=== PATIENT | male | born 1980 | race Caucasian/White ===

== ENCOUNTER 2022-05-29 18:40 | Emergency (ER) | payer BC, SELFPAY ==
[2022-05-29 18:42] VITALS: BP 145/95; PULSE 78; RESP 18; TEMP 36.8; O2SAT 98; BMI 19.2
--- NOTE | 2022-05-29 19:10 | HMH.EDGENADL ---
Discharge Plan Disposition Patient Disposition: Home, Self-Care Condition: Good Referrals Follow up/Referrals: Provider,Referral, MD [Primary Care Provider] - See instructions Activity Restrictions/Add. Instructions Additional Instructions/Restrictions: Follow-up with eye doctor if eye irritation or pain persists, call Tuesday for appointment if needed. Dr. Oneil, Dr. Chong, Dr. Alfonzo [facility] [address] [place] [address] Clinical Impressions Clinical Impression: Foreign body of conjunctiva, right Instructions Patient Instructions: DI for Foreign Body in the Eye Discharge ED Provider: Luis Schwartz General Adult HPI General Stated complaint: AO 05/29@1630 FB in R Eye Time Seen by Provider: 05/29/22 18:55 History of Present Illness HPI narrative: Patient states that he got a metallic foreign body in his right thigh today. He was cutting a metal pipe. He can feel it when he moves his upper eyelid. He does not wear contacts or glasses. [facility] Disclaimer: The information contained in this section may have been updated after the patient was seen, as this information can be updated by other users. ROS Obtained: Yes Systems reviewed as appropriate & no additional complaints except as documented Eyes Eyes: Reports irritation and Reports other (Increased tearing right eye) Physical Exam General General appearance: alert and in no apparent distress Expanded Eye Exam Slit lamp exam: performed (Fluorescein staining performed with slit lamp magnification. No uptake or abrasions seen. No corneal foreign bodies.) Eyelids: bilateral: normal inspection Pupils: Bilateral: regular, round Sclera/Conjunctival: right: injection and foreign body (Metallic conjunctival foreign body on the inner aspect of his right upper eyelid, removed with Q-tip) Chest Chest inspection: Present normal inspection and symmetric chest wall rise Respiratory Respiratory exam: Absent respiratory distress Cardiovascular Cardiovascular exam: Present regular rate Neurological Exam Neurological exam: Present alert and oriented X3 Psychiatric Psychiatric exam: Present normal affect and normal mood Skin Skin exam: Present warm and dry Medical Decision Making [place] Inquiry Pt receiving controlled substance: No Procedures Miscellaneous Procedure Procedure Performed: Tetracaine instilled in the right eye. Foreign body inner aspect right upper eyelid conjunctiva removed with Q-tip. No other foreign bodies found. Lids everted. Fluorescein staining and slit and examination unremarkable. Critical Care Time Critical Care Time Critical Care Time: No Attestation: On 05/29/22, the high probability of a clinically significant, sudden or life threatening deterioration of the following system(s) required my full and direct attention, intervention and personal management. The time I documented below is in addition to time spent performing reported procedures but includes the following listed in this critical care notation.
[2022-05-29 19:54] VITALS: BP 145/57; PULSE 68; RESP 20; TEMP 36.6; O2SAT 98
== END 2022-05-29 19:56 | disposition home or self-care (01) ==
PROVIDERS: Emergency Provider Emergency Medicine
DX: T15.11XA Foreign body in conjunctival sac, right eye, initial encounter (principal)
CPT/HCPCS: 99282

== ENCOUNTER 2022-07-09 14:52 | Emergency (ER) | payer BC, SELFPAY ==
--- NOTE | 2022-07-09 15:04 | HMH.EDHA ---
Discharge Plan Disposition Chief Complaint: Headache Referrals Follow up/Referrals: Devonte Ruiz MD [Primary Care Provider] - See instructions Activity Restrictions/Add. Instructions Additional Instructions/Restrictions: Keep all follow-up appointments as scheduled. Return to the emergency department if you feel worse in any way. Clinical Impressions Clinical Impression: Migraine Instructions Patient Instructions: DI for Migraine, DI for Headache Discharge ED Provider: Halima Ortega Headache HPI General Chief Complaint: Headache Stated Complaint: Possible migrane, vomitting, night sweats Time Seen by Provider: 07/09/22 15:04 Mode of Arrival: Ambulatory Source of Information: Patient History of Present Illness HPI Narrative: The patient presents to the emergency department complaining of a migraine headache that began about 3 AM. He has had similar symptoms in the past. The symptoms are associated with nausea and dry heaving. He denies any abdominal pain or fevers. He has chronic back pain. He takes ibuprofen and Tylenol for these. MD Complaint: migraine Related Data Allergies Allergy/AdvReac Type Severity Reaction Status Date / Time methadone AdvReac Unknown overdose Verified 07/09/22 15:33 [facility] History Hepatitis A Screen Attestation statement:: This patient has been screened for Hepatitis A risk factors. Social History Smoking Status: Current every day smoker [facility] Disclaimer: The information contained in this section may have been updated after the patient was seen, as this information can be updated by other users. Social History (Updated 07/09/22 @ 15:34 by Ryan Peterson RN) Smoking Status: Current every day smoker alcohol intake: current current occupational status: employed Travel in the last 8 weeks: None ROS Obtained: Yes All systems reviewed & no additional complaints except as documented Physical Exam General General appearance: alert Head Head exam: atraumatic Eye Eye exam: Present normal appearance, PERRL and EOMI; Absent scleral icterus ENT ENT exam: Present normal exam Neck Neck exam: Present normal inspection and full ROM; Absent tenderness or meningismus Chest Chest inspection: Present normal inspection and symmetric chest wall rise; Absent tenderness Respiratory Respiratory exam: Present normal lung sounds bilaterally; Absent respiratory distress or accessory muscle use Cardiovascular Cardiovascular exam: Present regular rate, normal rhythm and normal heart sounds Abdominal Exam Abdominal exam: Present soft and normal bowel sounds; Absent distention, tenderness, heel tap sign, Lopez's sign, Rovsing's sign, tenderness at McBurney's Point or mass Extremities Exam Extremities exam: Present normal inspection and full ROM Back Exam Back exam: Present normal inspection; Absent CVA tenderness (R) or CVA tenderness (L) Neurological Exam Neurological exam: Present alert and oriented X3 Psychiatric Psychiatric exam: Present normal affect and normal mood Skin Skin exam: Present warm, dry, intact and normal color Medical Decision Making [place] Inquiry Pt receiving controlled substance: No Vital Signs: 07/09/22 15:27 07/09/22 15:30 07/09/22 15:44 Temperature 97.6 F Temperature Source Oral Pulse Rate 65 65 Pulse Rate [Left] 87 Respiratory Rate 16 16 16 Blood Pressure 100/45 L 105/64 L Blood Pressure [Right Arm] 106/61 L Blood Pressure Mean 63 76 Blood Pressure Mean [Right Arm] 76 02 Sat by Pulse Oximetry 99 100 100 Lab Data Lab Results 07/09/22 15:08: POC Glucose 113 H Orders (Tests/Meds): ED MEDICATIONS Generic Name Dose Route Start Last Admin Trade Name Freq PRN Reason Stop Dose Admin Sodium Chloride 1,000 mls @ 999 mls/hr 07/09/22 15:15 07/09/22 15:08 Sod Chlor 0.9% 1000ml Bag IV 07/09/22 16:15 999 mls/hr .Q1H1M MICHELLE Administration Discontinued Medications Generic Name Dose Route Start La
[2022-07-09 15:24] LABS: POC Glucose,Bedside 113 (70-110)
--- NOTE | 2022-07-09 15:25 | PC.NURSE ---
got pt an ice pac
[2022-07-09 15:27] VITALS: BP 106/61; PULSE 87; RESP 16; TEMP 36.4; O2SAT 99; BMI 20.9
[2022-07-09 15:30] VITALS: BP 100/45; PULSE 65; RESP 16; O2SAT 100
[2022-07-09 15:44] VITALS: BP 105/64; PULSE 65; RESP 16; O2SAT 100
[2022-07-09 15:59] VITALS: BP 109/65; PULSE 73; RESP 16; TEMP 36.8; O2SAT 97
--- NOTE | 2022-07-09 16:10 | PC.NURSE ---
WENT IN TO D/C PT HIS IV HAD INFILTRATED ARM SWOLLEN WITH NO PAIN . ICE PACK SENT WITH PT
== END 2022-07-09 16:13 | disposition home or self-care (01) ==
PROVIDERS: Emergency Provider Emergency Medicine; PCP Family Medicine
DX: G43.909 Migraine, unspecified, not intractable, without status migrainosus (principal); R11.10 Vomiting, unspecified; M54.9 Dorsalgia, unspecified; G89.29 Other chronic pain; F17.210 Nicotine dependence, cigarettes, uncomplicated
CPT/HCPCS: 82962; 96361; 96374; 96375; 99285

== ENCOUNTER → 2022-08-05 16:44 | Outpatient (CLI) | payer BC, SELFPAY ==
--- NOTE | 2022-08-05 | XR_ITS ---
PROCEDURE INFORMATION: Exam: XR Cervical Spine Exam date and time: 08/05/2022 4:53 PM Age: 42 years old Clinical indication: Neck pain TECHNIQUE: Imaging protocol: Radiologic exam of the cervical spine. Views: 2 or 3 views. COMPARISON: No relevant prior studies available. FINDINGS: Bones/joints: Normal. No acute fracture. Normal alignment. Soft tissues: Unremarkable. IMPRESSION: No acute findings.
== END ==
PROVIDERS: PCP Family Medicine; Visit Provider Physician Assistant
DX: M54.2 Cervicalgia (principal)
CPT/HCPCS: 72040

== ENCOUNTER 2022-08-05 23:31 | Emergency (ER) | payer BC, SELFPAY ==
[2022-08-05 23:32] VITALS: BP 137/64; PULSE 86; RESP 16; TEMP 36.5; O2SAT 98; BMI 21.2
--- NOTE | 2022-08-05 23:51 | HMH.EDGENADL ---
Discharge Plan Disposition Patient Disposition: Home, Self-Care Condition: Good Prescriptions Prescriptions: New prednisone 50 mg tablet 50 mg PO DAILY 5 Days Qty: 5 0RF Referrals Follow up/Referrals: Devonte Ruiz MD [Primary Care Provider] - See instructions Activity Restrictions/Add. Instructions Additional Instructions/Restrictions: Return for worsening headache numbness weakness or tingling arms or legs or any other concerns within the next 8 hours otherwise follow-up with your primary care physician within the next few days Clinical Impressions Clinical Impression: Headache Discharge ED Provider: Oscar Griffin General Adult HPI General Chief complaint: Headache Stated complaint: Severe bakc head pain with nausea Time Seen by Provider: 08/05/22 23:35 Mode of Arrival: Ambulatory Source of Information: Patient Limitations: No Limitations Description of Symptoms (Recalled from ER Triage Doc. by RN): pt c/o dunham that startes at base of head and radiates to lt adventism since yesterday morning. pt states had xrays today that was order from pcp History of Present Illness HPI narrative: 42-year-old male presents with posterior headache and neck pain for 2 months. He says it has been waxing and waning and he has been evaluated by primary care physician, given muscle relaxers without relief. He was evaluated today and cervical x-ray was ordered however he does not know the results. He was supposed to be prescribed a steroid however he went to the pharmacy and they did not have it ordered at that time. He went to sleep tonight and woke up with severe pain in his posterior neck. No fever chills no pain with range of motion of the neck. No numbness weakness or tingling arms or legs dizziness or vertigo. No head injury. No imaging of the head. Related Data Previous Rx's Medication Instructions Recorded prednisone 50 mg tablet 50 mg PO DAILY 5 days #5 tabs 08/06/22 Allergies Allergy/AdvReac Type Severity Reaction Status Date / Time No Known Allergies Allergy Verified 08/05/22 23:43 [facility] Disclaimer: The information contained in this section may have been updated after the patient was seen, as this information can be updated by other users. Social History Smoking Status: Current every day smoker alcohol intake: current current occupational status: employed Travel in the last 8 weeks: Inside the [place] ROS Obtained: Yes All systems reviewed & no additional complaints except as documented Constitutional Constitutional: Denies chills and Reports headache(s) Eyes Eyes: Denies eye pain ENT Ears, Nose, Mouth, and Throat: Reports headache(s) and Denies lip swelling Cardiovascular Cardiovascular: Denies chest pain, Denies diaphoresis, Denies dyspnea and Denies palpitations Respiratory Respiratory: Denies shortness of breath and Denies dyspnea Gastrointestinal Gastrointestingal: Denies abdominal pain, constipation, nausea or vomiting Genitourinary Male Genitourinary: Denies flank pain Musculoskeletal Musculoskeletal: Denies muscle cramps Integumentary/Breasts Skin/Breast: Denies rash Neurologic Neurologic: Reports headache(s) Endocrine Endocrine: Denies palpitations Hematologic/Lymphatic Henatologic/Lymphatic: Denies easy bleeding Allergic/Immunologic Allergic/Immunologic: Denies lip swelling Physical Exam General General appearance: alert and in no apparent distress Eye Eye exam: Present PERRL and EOMI ENT ENT exam: Present normal exam and normal oropharynx Neck Neck exam: Present normal inspection and other (Mild tenderness to posterior neck) Chest Chest inspection: Present symmetric chest wall rise Respiratory Respiratory exam: Present normal lung sounds bilaterally; Absent respiratory distress Cardiovascular Cardiovascular exam: Present regular rate and normal rhythm Abdominal Exam Abdominal exam: Present soft; Absent d
--- NOTE | 2022-08-06 | CT_ITS ---
PROCEDURE INFORMATION: Exam: CT Head Without Contrast Exam date and time: 08/06/2022 12:11 AM Age: 42 years old Clinical indication: Pain; Headache TECHNIQUE: Imaging protocol: Computed tomography of the head without contrast. Radiation optimization: All CT scans at this facility use at least one of these dose optimization techniques: automated exposure control; mA and/or kV adjustment per patient size (includes targeted exams where dose is matched to clinical indication); or iterative reconstruction. REPORTING DATA: Count of CT and Cardiac NM exams in prior 12 months: This patient has received [address] and 0 known cardiac nuclear medicine studies in the 12 months prior to the current study. COMPARISON: No relevant prior studies available. FINDINGS: Brain: No hemorrhage. Unremarkable white matter. No mass effect. Cerebral ventricles: No ventriculomegaly. Paranasal sinuses: Air-fluid level in the sphenoid sinus. Mastoid air cells: Hypoaeration of bilateral mastoid air cells. Bones/joints: Unremarkable. No acute fracture. Soft tissues: Unremarkable. IMPRESSION: No acute intracranial abnormality.
--- NOTE | 2022-08-06 | CT_ITS ---
PROCEDURE INFORMATION: Exam: CT Cervical Spine Without Contrast Exam date and time: 08/06/2022 12:11 AM Age: 42 years old Clinical indication: Neck pain TECHNIQUE: Imaging protocol: Computed tomography of the cervical spine without contrast. Radiation optimization: All CT scans at this facility use at least one of these dose optimization techniques: automated exposure control; mA and/or kV adjustment per patient size (includes targeted exams where dose is matched to clinical indication); or iterative reconstruction. REPORTING DATA: Count of CT and Cardiac NM exams in prior 12 months: This patient has received [address] and 0 known cardiac nuclear medicine studies in the 12 months prior to the current study. COMPARISON: No relevant prior studies available. FINDINGS: Bones/joints: No acute fracture. Normal alignment. No significant disc bulge or herniation. No severe spinal canal stenosis. No significant neural foraminal narrowing. Lungs: Lung apices reveal scarring. Soft tissues: Unremarkable. IMPRESSION: No acute findings.
[2022-08-06 00:59] VITALS: BP 112/79; PULSE 89; RESP 19; TEMP 36.7; O2SAT 98
== END 2022-08-06 01:03 | disposition home or self-care (01) ==
PROVIDERS: Emergency Provider Emergency Medicine; PCP Family Medicine
DX: R51.9 Headache, unspecified (principal); M54.2 Cervicalgia; F17.210 Nicotine dependence, cigarettes, uncomplicated
CPT/HCPCS: 70450; 72125; 96361; 96374; 96375; 99285

== ENCOUNTER 2024-01-05 11:14 | Outpatient (CLI) | payer BC, SELFPAY ==
[2024-01-05 12:03] LABS: Basophils # 0.1 K/mm3 (0-0.2); Basophils % 0.7 % (0.1-2.0); Eosinophils # 0.1 K/mm3 (0.0-0.4); Eosinophils % 0.8 % (0.1-12.0); Hematocrit 43.3 % (42.0-52.0); Hemoglobin 14.8 g/dL (14.1-18.0); Lymphocytes # 1.9 K/mm3 (0.7-4.5); Lymphocytes % 23.1 % (10-50); Mean Corpuscular HGB Conc 34.1 g/dL (31.8-35.4); Mean Corpuscular Hemoglobin 32.7 pg (27.0-31.2); Mean Corpuscular Volume 95.8 fl (80-94); Mean Platelet Volume 7.5 fl (7.4-10.4); Monocytes # 0.4 K/mm3 (0.1-1.0); Monocytes % 4.4 % (1.7-9.3); Neutrophils # 5.9 K/mm3 (1.8-7.8); Neutrophils % 71.2 % (37.0-80.0); Platelet Count 259 K/mm3 (142-424); Red Blood Count 4.52 M/mm3 (4.60-6.20); Red Cell Distribution Width 13.5 % (11.5-17.5); White Blood Count 8.2 K/mm3 (4.8-10.8)
[2024-01-05 12:25] LABS: Alanine Aminotransferase 25 U/L (12-78); Albumin/Globulin Ratio 1.6 (1.1-1.8); Alkaline Phosphatase 74 U/L (38-126); Anion Gap 7.4 mEq/L (5-15); Aspartate Amino Transferase 28 U/L (17-59); Bilirubin,Total 0.6 mg/dl (0.2-1.3); Blood Urea Nitrogen 8 mg/dl (9-20); Calcium 9.2 mg/dl (8.4-10.2); Carbon Dioxide 30 mmol/L (22.0-30.0); Chloride 105 mmol/L (98-107); Chol/HDL Ratio 4.8 (1-3.5); Cholesterol 214 mg/dl (140-200); Estimated Glomerular Filt Rate 124 ml/min (>60); GFR (African American) 150 ML/MIN (>60); Globulin 2.5 g/dL (1.3-3.2); Glucose 94 mg/dl (74-100); HDL Cholesterol 45 mg/dl (40-60); Potassium 4.4 mmoL/L (3.5-5.1); Sodium 138 mmol/L (136-145); Total Protein,Serum 6.5 g/dl (6.3-8.2); Triglycerides 168 mg/dl (30-150); VLDL Cholesterol 34 mg/dL (0-40)
[2024-01-05 12:37] LABS: Direct LDL Cholesterol 90.85 mg/dL (100-129)
[2024-01-05 12:41] LABS: Free T4 (Free Thyroxine) 1.11 ng/dl (0.78-2.19)
[2024-01-05 12:56] LABS: Prostate Specific Ag Screen 0.3 ng/ml (0.0-4.0); Thyroid Stimulating Hormone 0.46 uIU/mL (0.465-4.68)
[2024-01-05 13:15] LABS: Vitamin B12 424 pg/mL (239-931)
[2024-01-05 13:20] VITALS: BMI 19.7
== END 2024-01-05 23:59 | disposition home or self-care (01) ==
LOC: DIETICIAN 11:15
PROVIDERS: Physician Assistant; PCP Family Medicine; Visit Provider Family Medicine
DX: R63.4 Abnormal weight loss (principal); N41.0 Acute prostatitis
CPT/HCPCS: 36415; 80050; 80053; 80061; 82607; 84439; 84443; 85025; 97802; G0103

== ENCOUNTER 2024-02-22 13:29 | Outpatient (CLI) | payer BC, SELFPAY ==
--- NOTE | 2024-02-22 14:00 | ECG_ITS ---
APPROVED REPORT Exam: Resting ECG HR:71 bpm ECG Measurements Heart Rate 71 AXES AL 148 P 73 QRSd 94 QRS 78 QT 350 T 66 QTc 373 Conclusion SINUS RHYTHM Early repolariztion changes O/w normal ecg UNCONFIRMED REPORT Electronically signed by : Abhi Card MD 02/28/2024 18:20:07
[2024-02-22 14:45] LABS: Microscopic, Urine URINE MICROSCOPIC (MICROSCOPIC)
[2024-02-22 14:48] LABS: Appearance,Urine CLEAR (Clear); Bilirubin,Urine Negative (Negative); Blood, Urine Negative (Negative); Color,Urine YELLOW (Yellow); Glucose,Urine (UA) Negative (Negative); Ketones,Urine TRACE (Negative); Leukocyte Esterase,Urine Negative (Negative); Nitrate,Urine Negative (Negative); Protein,Urine Negative (Negative); Specific Gravity, Urine 1.025 (1.005-1.030)
[2024-02-22 14:50] LABS: Chloride 106 mmol/L (98-107)
[2024-02-22 14:51] LABS: Potassium 4.1 mmoL/L (3.5-5.1); Sodium 136 mmol/L (136-145)
[2024-02-22 14:54] LABS: Anion Gap 7.1 mEq/L (5-15); Blood Urea Nitrogen 10 mg/dl (9-20); Carbon Dioxide 27 mmol/L (22.0-30.0); Estimated Glomerular Filt Rate 124 ml/min (>60); GFR (African American) 150 ML/MIN (>60); Glucose 124 mg/dl (74-100)
[2024-02-22 14:58] LABS: Bacteria,Urine Trace /lpf; Squamous Epithelial Cell,Urine Occasional #/hpf (0-5); WBC,Urine Occasional #/hpf (0-3)
[2024-02-22 14:59] LABS: Calcium Oxalate Crystals,Urine 1+ /lpf
[2024-02-22 15:06] LABS: Basophils % 0.4 % (0.1-2.0); Eosinophils # 0.1 K/mm3 (0.0-0.4); Eosinophils % 0.8 % (0.1-12.0); Hematocrit 45.5 % (42.0-52.0); Hemoglobin 14.5 g/dL (14.1-18.0); Lymphocytes # 2.1 K/mm3 (0.7-4.5); Lymphocytes % 20.8 % (10-50); Mean Corpuscular HGB Conc 31.7 g/dL (31.8-35.4); Mean Corpuscular Hemoglobin 31.9 pg (27.0-31.2); Mean Corpuscular Volume 100.5 fl (80-94); Mean Platelet Volume 9.8 fl (7.4-10.4); Monocytes # 0.5 K/mm3 (0.1-1.0); Neutrophils # 7.3 K/mm3 (1.8-7.8); Neutrophils % 73.1 % (37.0-80.0); Platelet Count 281 K/mm3 (142-424); Red Blood Count 4.53 M/mm3 (4.60-6.20)
== END 2024-02-22 23:59 | disposition home or self-care (01) ==
LOC: PREOP 13:30
PROVIDERS: PCP Family Medicine; Visit Provider Surgery
DX: K40.20 Bilateral inguinal hernia, without obstruction or gangrene, not specified as recurrent (principal); Z01.810 Encounter for preprocedural cardiovascular examination; Z01.812 Encounter for preprocedural laboratory examination
CPT/HCPCS: 80048; 81001; 85025; 93005

== ENCOUNTER 2024-03-01 07:50 | Day surgery (SDC) | payer BC, SELFPAY ==
[2024-02-22 14:28] VITALS: BMI 19.5
[2024-03-01] VITALS (14 sets, daily range): BP systolic 100–145; BP diastolic 51–102; PULSE 59–90; RESP 16–22; TEMP 36.2–36.6; O2SAT 96–100
[2024-03-01] MEDS: LACTATED RINGERS 1000ML 1,000 ML 25 ML IV (08:10)
--- NOTE | 2024-03-01 08:24 | EXP.ANES.CKL ---
[facility] Disclaimer: The information contained in this section may have been updated after the patient was seen, as this information can be updated by other users. Medical History Asthma Acute left otitis media Tinnitus Right ear pain Impacted cerumen of both ears Surgical History History of placement of ear tubes History of adenoidectomy Family History Other Family history of COPD (chronic obstructive pulmonary disease) Family history of heart disease Social History Smoking Status: Current every day smoker tobacco type: cigarettes packs per day: 1 alcohol intake: never substance use type: denies use current occupational status: employed Travel in the last 8 weeks: Inside the [place] [facility] Anesthesia Checklist Patient Identification Patient Identification: Arm Band and Verbal (Name & ) Structural Data Admitted From: Home Planned Operative Procedure/s: Bilateral inguinal hernia repair Consent for Planned Operative Procedure(s) Verified: Yes Verified Documents: Surgical Consent and History and Physical NPO Status Verified Time NPO: 00:00 Additional verifications Anesthesia Reactions: No Hx Blood Transfusions: No Airway Assessment Mallampati Score:: Class II C-Spine Mobility Assessed: Yes TMJ Mobility Assessed: Yes Dentition: Dentures-poor fitting (Removed) Neurological Assessment Level of Consciousness: Awake Hx Seizures: No Numbness or tingling in extremities: No Anesthesia Plan Anesthesia Risk discussed: Yes Anesthesia Plan: Verified ASA Class: II Anesthesia Type: General
[2024-03-01] MEDS: 0.9 % SODIUM CHLORIDE 100 ML IV (09:05)
[2024-03-01] MEDS: CEFAZOLIN 1GM VIAL 2 GM (09:05)
[2024-03-01] MEDS: LIDOCAINE 1% 30ML PF VIAL 30 ML (09:12)
--- NOTE | 2024-03-01 11:59 | P.OP_ITS ---
Date of procedure: 03/01/24 Pre-op Diagnosis:: Bilateral inguinal hernia Post-op Diagnosis:: Same Procedure performed:: Laparoscopic bilateral inguinal hernia repair Surgeon:: Estuardo Eastman MD PUBLIC RELATIONS DIRECTOR:: Giuseppe Patino Anesthesia: GETA Estimated blood loss (mL): 15 Operative findings:: Bilateral small to moderate pantaloon defects Operative note:: After informed consent was obtained the patient was taken to the operating room and placed in the supine position. General anesthesia was induced and his abdomen was prepped and draped in a sterile fashion. After infiltration with local anesthetic an infraumbilical incision was made. The anterior fascial margin just to the left of midline was transected. Underlying inflammatory tissue and scarring to the posterior margin noted. The decision was made to forego attempts at placement of the dissecting balloon on the left. The transverse incision was extended across midline to the right side where the dissecting balloon was placed in position after transection of the anterior fascial margin and retraction of the rectus musculature. Once the dissecting balloon was removed the working port was secured. The preperitoneal space was insufflated. Blunt dissection was utilized to free loose areolar tissue along the left lateral margin. The dissection was then taken medially. A small to moderate pantaloon defect was noted. The peritoneum was carefully retracted to the point of medial projection of the vas deferens. A small cord lipoma was dissected free. Similar dissection was utilized on the right side where small to moderate pantaloon defects were also seen. As on the left, a small cord lipoma was dissected free. A small rent in the peritoneum was noted. A 5 mm trocar was placed through the left medial margin of the original infraumbilical incision to allow for evacuation of the peritoneal space. The peritoneum was freed to the point of medial projection of the vas deferens. Bard 3DMax mesh was then secured with an OPTi fix tack just superior to the tubercle. An additional tack was placed medial to the epigastric vessels. An additional tack was placed along the lateral margin of the mesh. This was completed bilaterally and insufflation was evacuated. Evaluation via the 5 mm trocar was then completed after establishment of pneumoperitoneum. No obvious sign of injury was noted. The small peritoneal rent was confirmed. The decision was made to forego attempted repair of the peritoneal rent. Each mesh appeared to be well- located. Pneumoperitoneum was released and the trocar was removed. All wounds were irrigated. The fascia at the infraumbilical trocar site was reapproximated with interrupted 0 Ethibond. Skin was then stapled. Dressings were applied and the patient was transferred to recovery in stable condition. Condition: stable Disposition: PACU Specimens:: None Complications:: No immediate
[2024-03-01] MEDS: MORPHINE 2MG/ML SYRINGE 2 MG (12:15)
--- NOTE | 2024-03-01 12:16 | EXP.ANES.I ---
[facility] Anesthesia Record Part I Anesthesia Record I Intake, IV Amount: 1,700 Hydration: Adequate Estimated blood loss (mL): 10 Urine output (mL): 200 Blood Products used (#): none Blood Pressure: 145/102 SaO2: 99 Pulse Rate: 90 Airway Patency: Patent Respiratory Rate: 22 Temperature: 97.8 F Patient is:: Drowsy and Stable
[2024-03-01] MEDS: MORPHINE 2MG/ML SYRINGE 1 MG IV ×2 (12:25→12:49)
[2024-03-01] MEDS: HYDROMORPHONE 2MG/ML SYRINGE 0.5 MG IV ×3 (12:28→12:38)
[2024-03-01] MEDS: MEPERIDINE 25MG/ML 1ML SYRINGE 12.5 MG IV (12:31)
[2024-03-01] MEDS: KETOROLAC 30MG/ML VIAL 30 MG (13:05)
[2024-03-01 15:11] LABS: Microscopic, Urine URINE MICROSCOPIC (MICROSCOPIC)
[2024-03-01 15:21] LABS: Appearance,Urine CLEAR (Clear); Bilirubin,Urine Negative (Negative); Blood, Urine Negative (Negative); Color,Urine YELLOW (Yellow); Glucose,Urine (UA) Negative (Negative); Ketones,Urine Negative (Negative); Leukocyte Esterase,Urine TRACE (Negative); Nitrate,Urine Negative (Negative); Protein,Urine Negative (Negative); Specific Gravity, Urine 1.015 (1.005-1.030); Urobilinogen,Urine 0.2 EU/dl (0.2)
[2024-03-01 15:41] LABS: RBC,Urine Occasional #/hpf (0-3); Squamous Epithelial Cell,Urine Occasional #/hpf (0-5)
[2024-03-01 15:42] LABS: Bacteria,Urine 2+ /lpf
--- NOTE | 2024-03-05 10:04 | EXP.ANES.II ---
[facility] Anesthesia Record Part II Anesthesia Record Part II Discharge Time: 13:25 Destination: Surgical Day Care (OP Surgery) PACU nurse assessment reviewed?: Yes Patient Condition:: Good Anesthesia Complications:: None Swallowing reflex intact?: Yes Airway Patency: Patent Cyanosis?: No Blood Pressure: 116/63 SaO2: 100 Respiratory Rate: 16 Pulse Rate: 83 Temperature: 97.8 F Mental Status: Alert & Oriented Pain level:: 0 Nausea and/or vomitting:: None Intake, IV Amount: 0 Hydration: Adequate
[2024-03-05 10:06] VITALS: BP 116/63; PULSE 83; RESP 16; TEMP 36.6; O2SAT 100
== END 2024-03-01 13:56 | disposition home or self-care (01) ==
PROVIDERS: PCP Family Medicine; Visit Provider Surgery
PROC: (CPT 49650; principal; 2024-03-01 09:30)
DX: K40.20 Bilateral inguinal hernia, without obstruction or gangrene, not specified as recurrent (principal)
CPT/HCPCS: 49650; 81001; 87086; 96374; J3490; C1781; J1100; J1170; J1885; J2175; J2250; J2270; J2405; J3010; J7120

== ENCOUNTER 2024-03-23 10:52 | Outpatient (CLI) | payer BC, SELFPAY ==
[2024-03-23 10:57] LABS: Microscopic, Urine URINE MICROSCOPIC (MICROSCOPIC)
[2024-03-23 11:31] LABS: Basophils # 0.1 K/mm3 (0-0.2); Basophils % 1.3 % (0.1-2.0); Eosinophils # 0.2 K/mm3 (0.0-0.4); Eosinophils % 2.3 % (0.1-12.0); Hemoglobin 16.1 g/dL (14.1-18.0); Lymphocytes # 2.3 K/mm3 (0.7-4.5); Mean Corpuscular Hemoglobin 33.1 pg (27.0-31.2); Mean Corpuscular Volume 94.7 fl (80-94); Mean Platelet Volume 7.5 fl (7.4-10.4); Monocytes # 0.5 K/mm3 (0.1-1.0); Monocytes % 5.8 % (1.7-9.3); Neutrophils # 5.4 K/mm3 (1.8-7.8); Neutrophils % 63.7 % (37.0-80.0); Platelet Count 299 K/mm3 (142-424); Red Blood Count 4.86 M/mm3 (4.60-6.20); Red Cell Distribution Width 13.2 % (11.5-17.5); White Blood Count 8.4 K/mm3 (4.8-10.8)
[2024-03-23 11:41] LABS: Appearance,Urine CLEAR (Clear); Bilirubin,Urine Negative (Negative); Blood, Urine Negative (Negative); Color,Urine YELLOW (Yellow); Glucose,Urine (UA) Negative (Negative); Ketones,Urine Negative (Negative); Leukocyte Esterase,Urine TRACE (Negative); Nitrate,Urine Negative (Negative); Protein,Urine Negative (Negative); Specific Gravity, Urine 1.015 (1.005-1.030); Urobilinogen,Urine 0.2 EU/dl (0.2)
[2024-03-23 12:03] LABS: Albumin Level 4.9 g/dl (3.5-5.0); Chloride 105 mmol/L (98-107); Potassium 5.2 mmoL/L (3.5-5.1); Sodium 137 mmol/L (136-145)
[2024-03-23 12:06] LABS: Alanine Aminotransferase 43 U/L (12-78); Albumin/Globulin Ratio 1.8 (1.1-1.8); Alkaline Phosphatase 54 U/L (38-126); Anion Gap 14.2 mEq/L (5-15); Aspartate Amino Transferase 51 U/L (17-59); Bilirubin,Total 0.9 mg/dl (0.2-1.3); Blood Urea Nitrogen 5 mg/dl (9-20); Carbon Dioxide 23 mmol/L (22.0-30.0); Estimated Glomerular Filt Rate 124 ml/min (>60); GFR (African American) 150 ML/MIN (>60); Globulin 2.8 g/dL (1.3-3.2); Total Protein,Serum 7.7 g/dl (6.3-8.2); WBC,Urine Occasional #/hpf (0-3)
[2024-03-23 12:07] LABS: Calcium 9.6 mg/dl (8.4-10.2); Glucose 102 mg/dl (74-100)
== END 2024-03-23 23:59 | disposition home or self-care (01) ==
LOC: LAB 10:53
PROVIDERS: PCP Family Medicine; Visit Provider Surgery
DX: K40.20 Bilateral inguinal hernia, without obstruction or gangrene, not specified as recurrent (principal)
CPT/HCPCS: 36415; 80053; 81001; 85025

== ENCOUNTER 2024-04-03 07:52 | Outpatient (CLI) | payer BC, SELFPAY ==
--- NOTE | 2024-04-03 07:52 | CT_ITS ---
PROCEDURE INFORMATION: Exam: CT Abdomen And Pelvis Without And With Contrast Exam date and time: 04/03/2024 8:02 AM Age: 43 years old Clinical indication: Abdominal pain; Localized; Left lower quadrant (llq); Prior surgery; Surgery date: <1 month; Surgery type: Bilat hernia repair; Additional info: Post status hernia, pain on left lower abd TECHNIQUE: Imaging protocol: Computed tomography of the abdomen and pelvis without and with contrast. Exam focused on the bowel. Radiation optimization: All CT scans at this facility use at least one of these dose optimization techniques: automated exposure control; mA and/or kV adjustment per patient size (includes targeted exams where dose is matched to clinical indication); or iterative reconstruction. Contrast material: ISOVUE 370; Contrast volume: 75 ml; Contrast route: INTRAVENOUS (IV); COMPARISON: No relevant prior studies available. FINDINGS: Liver: Normal. No mass. Gallbladder and biliary ducts: Normal. No calcified stones. No ductal dilation. Pancreas: Normal. No ductal dilation. Spleen: Normal. No splenomegaly. Adrenal glands: Normal. No mass. Kidneys and ureters: Normal. No hydronephrosis. Stomach and bowel: Moderate wall thickening and mild enhancement of the rectum noted. No bowel obstruction. Appendix: Appendix is normal. Intraperitoneal space: Unremarkable. No free air. No significant fluid collection. Vasculature: Unremarkable. No abdominal aortic aneurysm. Lymph nodes: Unremarkable. No enlarged lymph nodes. Urinary bladder: Decompressed bladder with mild wall thickening. Reproductive: Unremarkable as visualized. Bones/joints: There is asymmetric enlargement of the proximal left S1 sacral nerve, measuring approximately 2.8 x 3.3 cm axial, compared to 1.5 x 0.8 cm axial on the right. (image 81 series 5). Soft tissues: No acute osseous or soft tissue abnormality. The bilateral inguinal canals are unremarkable. IMPRESSION: 1. Moderate wall thickening and mild enhancement of the rectum noted. Consistent with infectious/inflammatory proctitis. 2. No acute osseous or soft tissue abnormality. The bilateral inguinal canals are unremarkable. 3. Decompressed bladder with mild wall thickening. Recommend correlation if there is concern for cystitis. 4. There is asymmetric enlargement of the proximal left S1 sacral nerve, measuring approximately 2.8 x 3.3 cm axial, compared to 1.5 x 0.8 cm axial on the right. Unclear etiology. May represent changes related to neuropathy versus a neurogenic lesion. Recommend correlation. Outpatient MRI of the pelvis with contrast can be considered for complete evaluation.
[2024-04-03] MEDS: IOPAMIDOL-370 (76%);100ML BOTTLE 75 ML IV (08:07)
[2024-04-03] MEDS: SODIUM CHLORIDE 0.9% 10ML SYR (RAD ONLY) 10 ML IV (08:08)
== END 2024-04-03 23:59 | disposition home or self-care (01) ==
LOC: RAD 07:52
PROVIDERS: PCP Family Medicine; Visit Provider Surgery
DX: K40.20 Bilateral inguinal hernia, without obstruction or gangrene, not specified as recurrent (principal)
CPT/HCPCS: 74178; Q9967

== ENCOUNTER 2024-04-12 09:00 | Outpatient (POV) | payer BC, SELFPAY ==
--- NOTE | 2024-04-12 09:19 | A.OFFVIS_ITS ---
HPI Data of Consult Patient: new to practice Consult date: 04/12/24 Requesting Physician: Kimberly Guy APRN Primary Care Provider: Devonte Ruiz MD Consult Narrative Reason for consult: Inguinal pain bilaterally, pelvic pain History of present illness: Mr. Castillo is a 43 year old male who presents today as a new patient. He is a referral from Dr. Ruiz's office. Today he rates his pain a 5 out of 10. Patient states he has pain throughout he has bilateral groin area as well as his mid pelvic area. He states this been going on since he had bilateral hernia surgery in February. Patient states the pain is severe and describes it as a consistent burning, fire sensation with martin-green, pulling and stabbing sensations. Patient states that he has to be very careful regarding his positioning due to worsening pain. He does state that when he had his surgery he was told to expect about 3 hours however the physician ended up spending 3 hours just on his left side due to significant scarring. Patient states that he has tried oral medication, heat and ice multiple topicals with minimal relief. He does state that he is on an anti-inflammatory now for his neck so he only takes Tylenol products in combination. He does state that he does have to take about 4 Tylenol at a time to help and that this often causes cramping. Patient states he cannot sleep because of the pain and that frequently he has to use pillows between his legs for positioning. He states that every little movement or walking is constant pain. He states he feels like he still has the hernias but also feels the incisional pain. Patient does state the pain interferes with his ability perform activities of daily living such as cooking and cleaning. Patient is interested in any help we may be able to provide.Patient has been prescribed [place] and Percocet in the past. His [place] has been reviewed and is appropriate. CC: Kimberly Guy APRN [facility] Disclaimer: The information contained in this section may have been updated after the patient was seen, as this information can be updated by other users. Medical History (Updated 04/12/24 @ 10:08 by Kimberly Guy APRN) Asthma Acute left otitis media Tinnitus Right ear pain Impacted cerumen of both ears Surgical History (Updated 04/12/24 @ 10:08 by Kimberly Guy APRN) History of inguinal hernia repair History of placement of ear tubes History of adenoidectomy Family History Other Family history of COPD (chronic obstructive pulmonary disease) Family history of heart disease Social History Smoking Status: Current every day smoker tobacco type: cigarettes packs per day: 1 alcohol intake: never substance use type: denies use current occupational status: employed Travel in the last 8 weeks: Inside the [place] Review of Systems Review of Systems Review of systems:: pertinent systems reviewed and negative unless documented below Review of systems (narrative): Review of Systems: General: No recent weight changes, no fever, no sleep disturbances Respiratory: No cough, no shortness of air, no recurring pulmonary infections Cardiovascular/peripheral vascular: No chest pain, no palpitations, no edema, no shortness of breath Gastrointestinal: No new onset incontinence, normal bowel movements reported Genitourinary: No new onset incontinence Musculoskeletal: Bilateral groin/pelvic pain Psychiatric: [Normal mood/affect] Neurological: [Denies weakness in extremities], [denies balance issues] Meds Home Medications and Allergies Home Medications ?Medication ?Instructions ?Recorded ?Confirmed ?Type cyclobenzaprine 10 mg tablet 10 mg PO .prn 01/05/24 04/04/24 History nabumetone 750 mg tablet 750 mg PO DAILY 01/05/24 04/04/24 History sumatriptan succinate 50 mg tablet 50 mg PO .prn PRN Migraine Headache 01/05/24 04/04/24 History amoxicillin 500 mg-potassium 1 tab PO TID 14 days #42 tabs 04/04/24 04/04/24 Rx clavulanate 125 mg tablet (Augmentin) New Prescriptions to Start Prescriptions: Allergies Allergy/AdvReac Type Severity Reaction Status Date / Time methadone AdvReac Unknown overdose Verified 04/04/24 14:32 Objective Narrative: Physical Exam: General: Alert and oriented x3, no acute distress, pleasant and cooperative Lungs: Respirations even and unlabored, symmetrical chest expansion Eyes: PERRL Musculoskeletal: Flexion and extension of lumbar somewhat guarded secondary to pain, tenderness with palpation along bilateral inguinal areas Neurological: Speech clear, no gross sensory deficit Additional findings Additional findings: [place] [id number] [place] [address] [address] Scan Report Signed Patient: Caesar Castillo MR#: [id number] : 1980 Acct:[id number] Age/Sex: 43 / M ADM Date: 04/03/24 Loc: RAD Attending Dr: Estuardo Eastman MD Ordering Physician: Estuardo Eastman MD Date of Service: 04/03/24 Procedure(s): CT abdomen pelvis wo/w con Accession Number(s): [id number] cc: Devonte Ruiz MD; Estuardo Eastman MD; Luis jacobs MD~ PROCEDURE INFORMATION: Exam: CT Abdomen And Pelvis Without And With Contrast Exam date and time: 04/03/2024 8:02 AM Age: 43 years old Clinical indication: Abdominal pain; Localized; Left lower quadrant (llq); Prior surgery; Surgery date: <1 month; Surgery type: Bilat hernia repair; Additional info: Post status hernia, pain on left lower abd TECHNIQUE: Imaging protocol: Computed tomography of the abdomen and pelvis without and with contrast. Exam focused on the bowel. Radiation optimization: All CT scans at this facility use at least one of these dose optimization techniques: automated exposure control; mA and/or kV adjustment per patient size (includes targeted exams where dose is matched to clinical indication); or iterative reconstruction. Contrast material: ISOVUE 370; Contrast volume: 75 ml; Contrast route: INTRAVENOUS (IV); COMPARISON: No relevant prior studies available. FINDINGS: Liver: Normal. No mass. Gallbladder and biliary ducts: Normal. No calcified stones. No ductal dilation. Pancreas: Normal. No ductal dilation. Spleen: Normal. No splenomegaly. Adrenal glands: Normal. No mass. Kidneys and ureters: Normal. No hydronephrosis. Stomach and bowel: Moderate wall thickening and mild enhancement of the rectum noted. No bowel obstruction. Appendix: Appendix is normal. Intraperitoneal space: Unremarkable. No free air. No significant fluid collection. Vasculature: Unremarkable. No abdominal aortic aneurysm. Lymph nodes: Unremarkable. No enlarged lymph nodes. Urinary bladder: Decompressed bladder with mild wall thickening. Reproductive: Unremarkable as visualized. Bones/joints: There is asymmetric enlargement of the proximal left S1 sacral nerve, measuring approximately 2.8 x 3.3 cm axial, compared to 1.5 x 0.8 cm axial on the right. (image 81 series 5). Soft tissues: No acute osseous or soft tissue abnormality. The bilateral inguinal canals are unremarkable. IMPRESSION: 1. Moderate wall thickening and mild enhancement of the rectum noted. Consistent with infectious/inflammatory proctitis. 2. No acute osseous or soft tissue abnormality. The bilateral inguinal canals are unremarkable. 3. Decompressed bladder with mild wall thickening. Recommend correlation if there is concern for cystitis. 4. There is asymmetric enlargement of the proximal left S1 sacral nerve, measuring approximately 2.8 x 3.3 cm axial, compared to 1.5 x 0.8 cm axial on the right. Unclear etiology. May represent changes related to neuropathy versus a neurogenic lesion. Recommend correlation. Outpatient MRI of the pelvis with contrast can be considered for complete evaluation. Assessment and Plan *Assessment and plan (1) Bilateral groin pain: Status: Acute Category: Medical Code(s): R10.31 - Right lower quadrant pain; R10.32 - Left lower quadrant pain (2) History of inguinal hernia repair: Status: Acute Category: Surgical Code(s): Z98.890 - Other specified postprocedural states; Z87.19 - Personal history of other diseases of the digestive system Plan Patient is experiencing significant pain throughout his bilateral inguinal areas with limited range of motion of his lumbar spine and point tenderness with palpation. Patient is all experiencing this related to a prior bilateral inguinal hernia repair. I did discuss with the patient that he may benefit from bilateral inguinal nerve blocks. Risk and benefits were discussed with patient and he would like to proceed forward with this plan of care. I will also order the patient a compounded cream. Patient has tried and failed conservative therapy including continued at home stretching exercise for longer than 12 weeks. Patient will be scheduled for bilateral inguinal nerve blocks. Patient has been instructed to contact the clinic with any concerns before the next appointment. Dr. Maurice has reviewed this note and agrees with this plan of care. This note was dictated using voice recognition software and make contain errors or omissions. All injections are used with Lidocaine or Bupivacaine and Depo Medrol.
[2024-04-12 12:29] VITALS: BP 123/67; PULSE 85; RESP 18; O2SAT 98; BMI 18.8
== END 2024-04-12 23:59 | disposition home or self-care (01) ==
LOC: SC.PAIN 09:00
PROVIDERS: PCP Family Medicine; Visit Provider Nurse Practitioner Family
DX: R10.31 Right lower quadrant pain (principal); R10.32 Left lower quadrant pain; Z98.890 Other specified postprocedural states; Z87.19 Personal history of other diseases of the digestive system; Z73.89 Other problems related to life management difficulty; F17.210 Nicotine dependence, cigarettes, uncomplicated
CPT/HCPCS: 99202; G0463

== ENCOUNTER 2024-04-20 11:43 | Outpatient (CLI) | payer BC, SELFPAY ==
[2024-04-20] MEDS: KETOROLAC 30MG/ML VIAL 15 MG IM (12:15)
[2024-04-20 12:30] VITALS: BP 122/90; PULSE 82; RESP 18; O2SAT 97
== END 2024-04-20 12:30 | disposition home or self-care (01) ==
LOC: INF 11:44
PROVIDERS: PCP Family Medicine; Visit Provider Surgery
DX: K40.20 Bilateral inguinal hernia, without obstruction or gangrene, not specified as recurrent (principal)
CPT/HCPCS: 96372; J1885

== ENCOUNTER 2024-05-01 08:24 | Day surgery (SDC) | payer BC, SELFPAY ==
[2024-05-01 08:53] VITALS: BP 118/74; PULSE 94; RESP 16; TEMP 36.8; O2SAT 98; BMI 19.5
[2024-05-01] MEDS: methylPREDNISolone ACETATE 80MG/ML VIAL 80 MG (09:07)
[2024-05-01] MEDS: LIDOCAINE 1% 5ML PF VIAL 5 ML (09:07)
[2024-05-01 09:08] VITALS: BP 107/52; PULSE 85; RESP 18; O2SAT 99
[2024-05-01] MEDS: BUPIVACAINE 0.25% 10ML INJ 25 MG IJ (09:08)
[2024-05-01 09:20] VITALS: BP 115/67; PULSE 73; RESP 16; O2SAT 97
[2024-05-01 09:29] VITALS: BP 107/52; PULSE 78; RESP 18; O2SAT 97
--- NOTE | 2024-05-01 10:22 | P.PCN_ITS ---
Procedure Date: 05/01/24 Time: 09:00 Anesthesiologist:: Amanuel Parada CRNA Complications:: None Pre-procedure Diagnosis:: Bilateral inguinal pain. Pelvic pain. Post-procedure Diagnosis:: Same. Indications for Procedure:: Patient is a pleasant 43-year-old male who comes our clinic today for bilateral ilioinguinal nerve blocks. Patient status post bilateral inguinal hernia repairs several months ago. He is continuing to have left testicular pain. Bilateral inguinal pain. He rates his pain 7/10. Procedure Details:: Details of the procedure explained to the patient. The patient taken procedure and placed in the supine position on the fluoroscopy table. The area over the bilateral inguinal and anterior iliac crest area was cleaned using chlorhexidine as a cleansing solution. Using a 25-gauge inch and half needle the right anter ior iliac crest was accessed in 3 separate areas and infiltrated with 1% lidocaine +0.25% Marcaine and 40 mg of Depo-Medrol. A total of 10 cc was injected. The same procedure was carried out over the left anterior iliac crest. Patient tolerated procedure without difficulty. There are no complications. Plan and Disposition:: Patient was discharged without incident.
== END 2024-05-01 09:20 | disposition home or self-care (01) ==
LOC: SC.PAINP 08:25
PROVIDERS: PCP Family Medicine; Visit Provider Nurse Anesthetist, Certified Registered
DX: R10.30 Lower abdominal pain, unspecified (principal); R10.2 Pelvic and perineal pain
CPT/HCPCS: 64425; 77002; J1010

== ENCOUNTER 2024-05-18 13:47 | Outpatient (POV) | payer BC, SELFPAY ==
[2024-05-18 14:10] VITALS: BP 125/74; PULSE 89; RESP 14; O2SAT 99; BMI 19.5
--- NOTE | 2024-05-18 14:22 | A.OFFVIS_ITS ---
[facility] Disclaimer: The information contained in this section may have been updated after the patient was seen, as this information can be updated by other users. Medical History Asthma Acute left otitis media Tinnitus Right ear pain Impacted cerumen of both ears Surgical History History of inguinal hernia repair History of placement of ear tubes History of adenoidectomy Family History Other Family history of COPD (chronic obstructive pulmonary disease) Family history of heart disease Social History Smoking Status: Current every day smoker tobacco type: cigarettes packs per day: 1 alcohol intake: never substance use type: denies use current occupational status: other Travel in the last 8 weeks: None PM Subjective & Objective Subjective Subjective:: Patient is a pleasant 43-year-old male who presents today for follow-up of bilateral ilioinguinal nerve block on 05/01/2024. Today he rates his pain a 2 out of 10 and denies any new trauma or injury. He does state that he did have at least 55% improvement following these injections along with the compounded cream. He does state that that combination has helped however he feels like he is going through the cream quite a bit in order to make it get significant improvement. Patient does state that the pain is still very random and will go more than a 5 or 6 out of 10 with certain activities. Patient does state that when he gets to that point it does interfere with his ability perform activities of daily living such as cooking and cleaning. Patient does state he would like to see about trying additional injections and that he is scheduled to go back the first of the year to work and he is really concerned that he will not be able to do this due to the continued pain. He does state that the injections really did seem to ease off the pressure and poking sensation along the right inguinal region however he still has the tearing and stabbing sensation along the left. He does also state he still feels like he has pressure in and around his penis area however it is not as strong as what it was prior. Patient does state that he still cannot do a belt because the additional weight really bothers that area and even simple clothing can really aggravate the pain. Patient denies any heart or kidney issues. He is currently on Flexeril and states that does seem to help his restless leg however has not really seem to do much more. Patient states he has been tried on baclofen in the past. Patient does also state that he has noticed that when he gets the urge to urinate he just cannot hold it without having to immediately go to the bathroom. His [place] has been reviewed and is appropriate. Review of Systems: General: No recent weight changes, no fever, no sleep disturbances Respiratory: No cough, no shortness of air, no recurring pulmonary infections Cardiovascular/peripheral vascular: No chest pain, no palpitations, no edema, no shortness of breath Gastrointestinal: No new onset incontinence, normal bowel movements reported Genitourinary: No new onset incontinence Musculoskeletal: Bilateral inguinal pain Psychiatric: [Normal mood/affect] Neurological: [Denies weakness in extremities], [denies balance issues] Pain at rest (0-10 scale): 5 Objective Objective:: Physical Exam: General: Alert and oriented x3, no acute distress, pleasant and cooperative Lungs: Respirations even and unlabored, symmetrical chest expansion Eyes: PERRL Musculoskeletal: Flexion and extension of lumbar [spine] somewhat guarded secondary to pain, [antalgic gait noted] bilateral inguinal pain with palpation Neurological: Speech clear, no gross sensory deficit Has patient had previous pain injection?: Yes Percent improvement in pain since last injection: 55% Conservative treatment options previously tried: NSAIDS Length of treatment: Longer than 12 weeks and Home exercise plan Length of treatment: Longer than 12 weeks Meds Home Medications and Allergies Home Medications ?Medication ?Instructions ?Recorded ?Confirmed ?Type cyclobenzaprine 10 mg tablet 10 mg PO .prn 01/05/24 05/18/24 History nabumetone 750 mg tablet 750 mg PO DAILY 01/05/24 05/18/24 History sumatriptan succinate 50 mg tablet 50 mg PO .prn PRN Migraine Headache 01/05/24 05/18/24 History ketorolac 10 mg tablet 10 mg PO Q8H 4 days #12 tabs 04/20/24 05/18/24 Rx New Prescriptions to Start Prescriptions: Allergies Allergy/AdvReac Type Severity Reaction Status Date / Time methadone AdvReac Unknown overdose Verified 05/16/24 13:24 Assessment and Plan *Assessment and plan (1) History of inguinal hernia repair: Status: Acute Category: Surgical Code(s): Z98.890 - Other specified postprocedural states; Z87.19 - Personal history of other diseases of the digestive system (2) Bilateral groin pain: Status: Acute Category: Medical Code(s): R10.31 - Right lower quadrant pain; R10.32 - Left lower quadrant pain Plan I did discuss with the patient that we will send in a 2-week dose of diclofenac 75 mg twice daily and discontinue his [id number] anti-inflammatories while he tries this medication. Patient was also counseled to try this with food to minimize GI upset. Patient will also be sent in a 2-week dose of methocarbamol 750 mg 3 times daily. Patient was counseled to stop his Flexeril while he does try these medications and to try them 1 at a time with a couple of days between in order to make sure he does not have reactions to 1 or the other. Patient agrees with this. I did also discuss due to his continued inguinal pain that I do believe he would benefit from a second's set of bilateral ilioinguinal nerve blocks. Risk and benefits were discussed with the patient and he would like to proceed forward with this plan of care. Patient has tried and failed conservative therapy including oral medications, heat and ice, topicals, continued at home stretching exercise for longer than 12 weeks. Patient will be scheduled for bilateral ilioinguinal nerve blocks. Currently our office is scheduling out to June 19 and I did discuss with the patient that I can send him to a [place] location if he needs to be seen sooner. Patient is requesting this due to the fact that he starts back to work 13 June. We will send a copy of our note to our [place] clinic location and get him scheduled at this office. Patient will plan on following up with our office after. Patient has been instructed to contact the clinic with any concerns before the next appointment. Dr. Maurice has reviewed this note and agrees with this plan of care. This note was dictated using voice recognition software and make contain errors or omissions. All injections are used with Lidocaine or Bupivacaine and Depo Medrol.
== END 2024-05-18 23:59 | disposition home or self-care (01) ==
PROVIDERS: PCP Internal Medicine; Visit Provider Nurse Practitioner Family
DX: Z98.890 Other specified postprocedural states (principal); Z87.19 Personal history of other diseases of the digestive system; R10.31 Right lower quadrant pain; R10.32 Left lower quadrant pain; F17.210 Nicotine dependence, cigarettes, uncomplicated; Z73.89 Other problems related to life management difficulty
CPT/HCPCS: 99212; G0463

== ENCOUNTER 2024-06-07 14:23 | Outpatient (CLI) | payer BC, SELFPAY ==
--- NOTE | 2024-06-07 14:23 | MR_ITS ---
FINAL REPORT CLINICAL HISTORY: Neck pain, Cervogenic H/A unresponsive to meds FINDINGS: Multi planar MR imaging was obtained of the cervical spine. There is abnormal decreased signal throughout the cervical discs. The vertebrae are of normal height. There is no malalignment. The cervical cord demonstrates normal signal and configuration. C2-C3: There is no evidence of significant disc bulge or protrusion. There is no significant facet hypertrophy. C3-C4: Mild endplate hypertrophy, eccentric to the left with mild to moderate left neuroforaminal narrowing. C4-C5: Mild diffuse disc bulge. Mild endplate hypertrophy with mild spinal and moderate bilateral neuroforaminal narrowing. C5-C6: Mild diffuse disc bulge. Right posterolateral disc protrusion with mild to moderate right neuroforaminal narrowing. C6-C7: Mild diffuse disc bulge with moderate bilateral neuroforaminal narrowing. C7-T1: There is no evidence of significant disc bulge or protrusion. There is no significant facet hypertrophy. IMPRESSION: Multilevel degenerative disc disease with neuroforaminal compromise as above. Reviewed, Interpreted and Dictated by Kostas Michele MD Transcribed by Shaylee Lake Authenticated and [facility]
--- NOTE | 2024-06-07 14:34 | XR_ITS ---
FINAL REPORT CLINICAL HISTORY: r/o metal foreign body for MRI FINDINGS: ORBITS Look up and look down views were obtained. No fracture is identified. The sinuses are clear. No foreign body is identified. IMPRESSION: No radiopaque foreign body. Reviewed, Interpreted and Dictated by Kostas Michele MD Transcribed by Shalini Suresh Authenticated and [facility]
== END 2024-06-07 23:59 | disposition home or self-care (01) ==
LOC: RAD 14:23
PROVIDERS: PCP Internal Medicine; Visit Provider Specialist
DX: M54.2 Cervicalgia (principal); G44.86 Cervicogenic headache
CPT/HCPCS: 70200; 72141

== ENCOUNTER 2024-06-12 13:57 | Outpatient (CLI) | payer BC, SELFPAY ==
--- NOTE | 2024-06-12 13:57 | MR_ITS ---
FINAL REPORT TECHNIQUE: Multiplanar and multisequence MR imaging was performed through the lumbar spine before and after contrast administration. CLINICAL HISTORY: enlarged sacral nerve on right 13 ml prohance COMPARISON: None FINDINGS: The vertebral bodies are normally aligned. The vertebral body heights are preserved. There is no acute bone marrow edema. There is no abnormal bone marrow enhancement. The cord terminates at L1. There is normal signal within the distal cord. There is no abnormal enhancement in the distal cord. Note is made of a Tarlov cyst at the S2 level. This is not imaged in the axial plane. L1-L2: Annular disc bulge. No central canal stenosis. Mild bilateral foraminal stenosis. Note made of what is likely a perineural nerve root cyst on the left. L2-L3: Annular disc bulge with annular fissure. Mild central canal and bilateral foraminal stenosis. Bilateral perineural nerve root cysts at this level. L3-L4: Annular disc bulge with degenerative endplate changes and facet osteoarthropathy. Mild central canal and bilateral foraminal stenosis. L4-L5: Annular disc bulge with degenerative endplate changes and facet osteoarthropathy. Mild central canal and bilateral foraminal stenosis. Left perineural nerve root cyst at this level. L5-S1: Annular disc bulge. No central canal or significant foraminal stenosis. IMPRESSION: Mild multilevel degenerative disc disease as above. 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 These are usually incidental. Reviewed, Interpreted and Dictated by Tammie Cotto MD Transcribed by Erendira Fuentes Authenticated and . [facility]
[2024-06-12] MEDS: SODIUM CHLORIDE 0.9% 10ML SYR (RAD ONLY) 10 ML IV (15:17)
[2024-06-12] MEDS: GADOTERIDOL INJ 20ML SYRINGE 13 ML IV (15:17)
== END 2024-06-12 23:59 | disposition home or self-care (01) ==
LOC: RAD 13:57
PROVIDERS: PCP Internal Medicine; Visit Provider Internal Medicine
DX: S34.22XA Injury of nerve root of sacral spine, initial encounter (principal)
CPT/HCPCS: 72158; A9576

== ENCOUNTER 2024-06-19 11:09 | Day surgery (SDC) | payer BC, SELFPAY ==
[2024-06-19 11:31] VITALS: BP 117/78; PULSE 87; RESP 16; O2SAT 99; BMI 20.2
[2024-06-19] MEDS: LIDOCAINE 1% 5ML PF VIAL 5 ML (11:50)
[2024-06-19] MEDS: methylPREDNISolone ACETATE 80MG/ML VIAL 80 MG (11:50)
[2024-06-19] MEDS: BUPIVACAINE 0.25% 10ML INJ 25 MG IJ (11:50)
[2024-06-19 11:53] VITALS: BP 115/59; PULSE 71; RESP 18; O2SAT 98
[2024-06-19 11:54] VITALS: BP 115/59; PULSE 71; RESP 18; O2SAT 98
[2024-06-19 11:59] VITALS: BP 129/67; PULSE 77; RESP 16; O2SAT 100
--- NOTE | 2024-06-19 12:13 | EXP.PAIN.PRO ---
Procedure Date: 06/19/24 Time: 11:45 Anesthesiologist:: Amanuel Parada CRNA Complications:: None Pre-procedure Diagnosis:: Bilateral chronic inguinal pain. Post-procedure Diagnosis:: Same Indications for Procedure:: Patient is a pleasant 43-year-old male who comes our clinic today for repeat bilateral ilioinguinal nerve block. Patient has had moderate to significant improvement terms of his bilateral inguinal pain with previous injections the same area. Patient is status post bilateral inguinal hernia repair. He continues to have bilateral inguinal pain. Left testicular pain. Procedure Details:: Details of the procedure explained to the patient. The patient taken procedure and placed in the supine position on the fluoroscopy table. The area over the bilateral inguinal and anterior iliac crest area was cleaned using chlorhexidine as a cleansing solution. Using a 25-gauge inch and half needle the right anterior iliac crest was accessed in 3 separate areas and infiltrated with 1% lidocaine +0.25% Marcaine and 40 mg of Depo-Medrol. A total of 10 cc was injected. The same procedure was carried out over the left anterior iliac crest. Patient tolerated procedure without difficulty. There are no complications. Plan and Disposition:: Patient was discharged without incident.
== END 2024-06-19 11:59 | disposition home or self-care (01) ==
LOC: SC.PAINP 11:11
PROVIDERS: PCP Internal Medicine; Visit Provider Nurse Practitioner Family
DX: R10.30 Lower abdominal pain, unspecified (principal); G89.29 Other chronic pain
CPT/HCPCS: 64425; J1010

== ENCOUNTER 2024-07-03 11:25 | Outpatient (POV) | payer BC, SELFPAY ==
[2024-07-03 12:00] VITALS: BP 120/55; PULSE 76; RESP 18; O2SAT 98; BMI 20.9
--- NOTE | 2024-07-03 12:18 | A.OFFVIS_ITS ---
[facility] Disclaimer: The information contained in this section may have been updated after the patient was seen, as this information can be updated by other users. Medical History (Updated 07/03/24 @ 12:22 by Kimberly Guy APRN) History of depression History of COPD Snoring Sleep-disordered breathing Cervicogenic headache Neck pain Asthma Acute left otitis media Tinnitus Right ear pain Impacted cerumen of both ears Surgical History History of inguinal hernia repair History of placement of ear tubes History of adenoidectomy Family History Other Cancer Coronary artery disease Family history of COPD (chronic obstructive pulmonary disease) Family history of heart disease CHELLY (obstructive sleep apnea) Social History Smoking Status: Current every day smoker tobacco type: cigarettes packs per day: 2 alcohol intake: never substance use type: denies use current occupational status: employed Travel in the last 8 weeks: None household members: spouse marital status: Have you lived/traveled outside [place] in past 30 days?: No Contact w/someone who lives/traveled outside [place] past 30 days?: No Exposure to someone with infectious disease in past 14 days?: No Do you have a fever (greater than 100.4 F or 38 C)?: No Have you tested positive for COVID-19: No Exposed to someone with COVID-19 in past 14 days?: No Do you have a sore throat?: No Do you have a cough?: No Do you have any weakness?: No Do you have any diarrhea?: No Are you experiencing any unusual bleeding?: No Do you have any muscle aches/pain?: No Do you have any abdominal pain?: No Are you experiencing loss of taste or smell?: No PM Subjective & Objective Subjective Subjective:: Patient is a pleasant 44-year-old male who presents today for his follow-up to bilateral ilioinguinal nerve blocks on 06/19/2024. Today he does rate his pain a 3 out of 10 however states it will get a 10 out of 10 with increased activity or the slightest movement. He does state that he had improvement with this injection however it was just the day. He states that it did seem to ease down the heavy numb feeling however it was very short-lived. Patient does have chronic pain related to hernia surgery that has just not improved over months. Patient does also have chronic low back pain that does radiate down into his lower extremities and history of significant headache. Patient states that with all of these chronic issues he just does not feel like he functions as well. He states he has difficulty performing activities of daily living such as cooking and cleaning. He states that the injections just do not seem to provide long- term relief. Patient at our last visit was sent in methocarbamol 750 mg 3 times a day. He states it helped some however still not significantly. His [place] has been reviewed and is appropriate. Review of Systems: General: No recent weight changes, no fever, no sleep disturbances Respiratory: No cough, no shortness of air, no recurring pulmonary infections Cardiovascular/peripheral vascular: No chest pain, no palpitations, no edema, no shortness of breath Gastrointestinal: No new onset incontinence, normal bowel movements reported Genitourinary: No new onset incontinence Musculoskeletal: Chronic low back pain, bilateral leg pain, ilioinguinal pain Psychiatric: [Normal mood/affect] Neurological: [Denies weakness in extremities], [denies balance issues] Pain at rest (0-10 scale): 10 Objective Objective:: Physical Exam: General: Alert and oriented x3, no acute distress, pleasant and cooperative Lungs: Respirations even and unlabored, symmetrical chest expansion Eyes: PERRL Musculoskeletal: Flexion and extension of lumbar [spine] somewhat guarded secondary to pain, [antalgic gait noted] Neurological: Speech clear, no gross sensory deficit FINDINGS: The vertebral bodies are normally aligned. The vertebral body heights are preserved. There is no acute bone marrow edema. There is no abnormal bone marrow enhancement. The cord terminates at L1. There is normal signal within the distal cord. There is no abnormal enhancement in the distal cord. Note is made of a Tarlov cyst at the S2 level. This is not imaged in the axial plane. L1-L2: Annular disc bulge. No central canal stenosis. Mild bilateral foraminal stenosis. Note made of what is likely a perineural nerve root cyst on the left. L2-L3: Annular disc bulge with annular fissure. Mild central canal and bilateral foraminal stenosis. Bilateral perineural nerve root cysts at this level. L3-L4: Annular disc bulge with degenerative endplate changes and facet osteoarthropathy. Mild central canal and bilateral foraminal stenosis. L4-L5: Annular disc bulge with degenerative endplate changes and facet osteoarthropathy. Mild central canal and bilateral foraminal stenosis. Left perineural nerve root cyst at this level. L5-S1: Annular disc bulge. No central canal or significant foraminal stenosis. IMPRESSION: Mild multilevel degenerative disc disease as above. 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 These are usually incidental. Reviewed, Interpreted and Dictated by Tammie Cotto MD Transcribed by Erendira Fuentes Authenticated and [employer] Has patient had previous pain injection?: Yes Percent improvement in pain since last injection: 50% lasting less than 24 hours Conservative treatment options previously tried: Home exercise plan Length of treatment: Longer than 12 weeks Meds Home Medications and Allergies Home Medications ?Medication ?Instructions ?Recorded ?Confirmed ?Type nabumetone 750 mg tablet 750 mg PO DAILY 01/05/24 07/03/24 History sumatriptan succinate 50 mg tablet 50 mg PO .prn PRN Migraine Headache 01/05/24 07/03/24 History diclofenac sodium 75 mg 75 mg PO BID #28 tabs 05/18/24 07/03/24 Rx tablet,delayed release methocarbamol 750 mg tablet 750 mg PO TID #42 tabs 05/18/24 07/03/24 Rx amitriptyline 10 mg tablet 10 mg PO DAILY Migraine #60 tabs 05/21/24 07/03/24 Rx cyclobenzaprine 10 mg tablet 10 mg PO TID PRN . 05/21/24 07/03/24 History New Prescriptions to Start Prescriptions: Allergies Allergy/AdvReac Type Severity Reaction Status Date / Time methadone AdvReac Unknown overdose Verified 05/22/24 13:04 ketorolac (From Toradol) AdvReac Verified 05/22/24 13:04 Assessment and Plan *Assessment and plan (1) Neck pain: Status: Chronic Category: Medical Code(s): M54.2 - Cervicalgia (2) Cervicogenic headache: Status: Chronic Category: Medical Code(s): G44.86 - Cervicogenic headache (3) History of inguinal hernia repair: Status: Acute Category: Surgical Code(s): Z98.890 - Other specified postprocedural states; Z87.19 - Personal history of other diseases of the digestive system (4) Bilateral groin pain: Status: Acute Category: Medical Code(s): R10.31 - Right lower quadrant pain; R10.32 - Left lower quadrant pain (5) Degenerative disc disease, lumbar: Status: Acute Category: Medical Code(s): M51.369 - Other intervertebral disc degeneration, lumbar region without mention of lumbar back pain or lower extremity pain (6) Lumbar radiculopathy: Status: Acute Category: Medical Code(s): M54.16 - Radiculopathy, lumbar region Plan I did discuss with the patient due to him only getting temporary relief through the injections that he may be a beneficial candidate of a spinal cord stimulator trial. Risk and benefits and educational handouts were given at today's visit. Patient does also have a longstanding history of chronic back pain with radicular symptoms and numbness and tingling. I did review over with him regarding the trial restrictions. He would like to proceed forward with this plan of care. I will order the patient a psychological evaluation and if he is deemed an appropriate candidate we will proceed forward with a spinal cord stimulator trial at a later date. Patient will return to clinic in 1 month for reevaluation of symptoms and plan of care. Patient has tried and failed conservative therapy including oral medication, heat and ice, topicals, physical therapy, home stretching exercise for longer than 12 weeks. Patient has been instructed to contact the clinic with any concerns before the next appointment. Dr. Maurice has reviewed this note and agrees with this plan of care. This note was dictated using voice recognition software and make contain errors or omissions. All injections are used with Lidocaine, Bupivacaine and Depo Medrol. Occasionally urine drug screen is needed to verify patient's compliance with our office pain contract. This is ordered based off specific treatments related to chronic pain with the potential to abuse certain medications.
== END 2024-07-03 23:59 | disposition home or self-care (01) ==
LOC: SC.PAIN 11:26
PROVIDERS: PCP Internal Medicine; Visit Provider Nurse Practitioner Family
DX: M54.2 Cervicalgia (principal); G44.86 Cervicogenic headache; Z98.890 Other specified postprocedural states; Z87.19 Personal history of other diseases of the digestive system; R10.31 Right lower quadrant pain; R10.32 Left lower quadrant pain; M51.16 Intervertebral disc disorders with radiculopathy, lumbar region; F17.210 Nicotine dependence, cigarettes, uncomplicated; Z73.89 Other problems related to life management difficulty
CPT/HCPCS: 99212; G0463

== ENCOUNTER 2024-07-30 13:10 | Outpatient (POV) | payer BC, SELFPAY ==
--- NOTE | 2024-07-30 13:14 | EXP.PAIN.SOA ---
[facility] Disclaimer: The information contained in this section may have been updated after the patient was seen, as this information can be updated by other users. Medical History Right groin hernia Left groin hernia History of depression History of COPD Snoring Sleep-disordered breathing Cervicogenic headache Neck pain Asthma Acute left otitis media Tinnitus Right ear pain Impacted cerumen of both ears Surgical History H/O hernia repair History of inguinal hernia repair History of placement of ear tubes History of adenoidectomy Family History Other Cancer Coronary artery disease Family history of COPD (chronic obstructive pulmonary disease) Family history of heart disease CHELYL (obstructive sleep apnea) Social History Smoking Status: Current every day smoker tobacco type: cigarettes packs per day: 2 alcohol intake: never substance use type: denies use current occupational status: other Travel in the last 8 weeks: None household members: spouse marital status: Have you lived/traveled outside [place] in past 30 days?: No Contact w/someone who lives/traveled outside [place] past 30 days?: No Exposure to someone with infectious disease in past 14 days?: No Do you have a fever (greater than 100.4 F or 38 C)?: No Have you tested positive for COVID-19: No Exposed to someone with COVID-19 in past 14 days?: No Do you have a sore throat?: No Do you have a cough?: No Do you have any weakness?: No Do you have any diarrhea?: No Are you experiencing any unusual bleeding?: No Do you have any muscle aches/pain?: No Do you have any abdominal pain?: No Are you experiencing loss of taste or smell?: No PM Subjective & Objective Subjective Subjective:: Patient is a 44-year-old male who presents today for follow-up of psychological evaluation. Today he rates his pain a 7 out of 10. He denies any new trauma or injury. He states he is still having severe pain from his inguinal area down that does go into both his legs. Patient does state that he did complete a psychological evaluation and that the provider did tell him that he passed. He states that he would like to proceed forward with this option. Patient has tried and failed conservative therapy including continued at home stretching and exercise for longer than 12 weeks. Patient is currently managed with methocarbamol 750 mg 3 times a day from our office along with compounded cream. He states that it just does not seem to be cutting it. He is asking if we can make any changes to the topical cream as it is just not lasting. His [place] has been reviewed and is appropriate. Review of Systems: General: No recent weight changes, no fever, no sleep disturbances Respiratory: No cough, no shortness of air, no recurring pulmonary infections Cardiovascular/peripheral vascular: No chest pain, no palpitations, no edema, no shortness of breath Gastrointestinal: No new onset incontinence, normal bowel movements reported Genitourinary: No new onset incontinence Musculoskeletal: Low back pain, inguinal pain, leg pain Psychiatric: [Normal mood/affect] Neurological: [Denies weakness in extremities], [denies balance issues] Pain at rest (0-10 scale): 7 Objective Objective:: Physical Exam: General: Alert and oriented x3, no acute distress, pleasant and cooperative Lungs: Respirations even and unlabored, symmetrical chest expansion Eyes: PERRL Musculoskeletal: Flexion and extension of lumbar [spine] somewhat guarded secondary to pain, [antalgic gait noted] Neurological: Speech clear, no gross sensory deficit Has patient had previous pain injection?: No Conservative treatment options previously tried: Home exercise plan Length of treatment: Longer than 12 weeks Meds Home Medications and Allergies Home Medications ?Medication ?Instructions ?Recorded ?Confirmed ?Type sumatriptan succinate 50 mg tablet 50 mg PO .prn PRN Migraine Headache 01/05/24 07/30/24 History New Prescriptions to Start Prescriptions: Allergies Allergy/AdvReac Type Severity Reaction Status Date / Time methadone AdvReac Unknown overdose Verified 07/03/24 13:00 ketorolac (From Toradol) AdvReac Verified 07/03/24 13:00 Assessment and Plan *Assessment and plan (1) Lumbar radiculopathy: Status: Acute Category: Medical Code(s): M54.16 - Radiculopathy, lumbar region (2) Degenerative disc disease, lumbar: Status: Acute Category: Medical Code(s): M51.369 - Other intervertebral disc degeneration, lumbar region without mention of lumbar back pain or lower extremity pain Plan I did review over again the risk and benefits of the spinal cord stimulator trial and he states he would definitely like to proceed forward with this option. Patient does not yet have the psychological evaluation in the computer system and I have counseled him that we will have to wait to get this in order to proceed forward with getting him a date for the trial. Patient agrees with this plan of care. Patient has tried and failed conservative therapy including continued at home stretching exercise for longer than 12 weeks with no additional changes. We will plan on submitting the patient for the spinal cord stimulator trial under fluoroscopy once we have the official documentation on his psych eval. I will also reach out to the compound pharmacy and see that we made some changes to the medication combination we use for his cream. Patient will be given a tentative date for August for his trial. Patient has been instructed to contact the clinic with any concerns before the next appointment. Dr. Maurice has reviewed this note and agrees with this plan of care. This note was dictated using voice recognition software and make contain errors or omissions. All injections are used with Lidocaine, Bupivacaine and Depo Medrol. Occasionally urine drug screen is needed to verify patient's compliance with our office pain contract. This is ordered based off specific treatments related to chronic pain with the potential to abuse certain medications.
[2024-07-30 13:24] VITALS: BP 112/60; PULSE 107; RESP 16; O2SAT 98; BMI 20.2
== END 2024-07-30 23:59 | disposition home or self-care (01) ==
LOC: SC.PAIN 13:11
PROVIDERS: PCP Internal Medicine; Visit Provider Nurse Practitioner Family
DX: M51.16 Intervertebral disc disorders with radiculopathy, lumbar region (principal); F17.210 Nicotine dependence, cigarettes, uncomplicated
CPT/HCPCS: 99212; G0463

== ENCOUNTER 2024-08-08 11:31 | Emergency (ER) | payer BC, SELFPAY ==
[2024-08-08 11:54] VITALS: BP 111/61; PULSE 94; RESP 18; TEMP 36.8; O2SAT 98; BMI 20.2
--- NOTE | 2024-08-08 12:05 | HMH.EDGENADL ---
Discharge Plan Disposition Patient Disposition: Home, Self-Care Chief Complaint: Headache Prescriptions Prescriptions: No Action sumatriptan succinate 50 mg tablet 50 mg PO .prn PRN (Reason: Migraine Headache) Patient Comments: TAKE ONE TABLET BY MOUTH AT ONSET OF MIGRAINE. IF SYMPTOMS PERSIST, A SECOND DOSE MAY BE TAKEN IN 2 HOURS. Ubrelvy 100 mg tablet 100 mg PO ONCE PRN (Reason: migraine headache) Qty: 14 2RF Referrals Follow up/Referrals: Rashid Venegas DO [Primary Care Provider] - See instructions Activity Restrictions/Add. Instructions Additional Instructions/Restrictions: Talk to family doctor about potentially adding Nurtec into treatment regimen. Continue doing what you are doing and treating migraines as needed. Call your family doctor to establish care for this visit to the emergency department and schedule follow-up within 48 hours to ensure improvement. If you have any worsening of your condition or any other concerning signs or symptoms, return to the emergency department or your primary care doctor for further evaluation. Clinical Impressions Clinical Impression: Migraine headache Print Language Print Language: Sinhala Discharge ED Provider: Darinel Evans General Adult HPI General Chief complaint: Headache Stated complaint: painful headache vomiting abd pain from hernia Time Seen by Provider: 08/08/24 12:04 Mode of Arrival: Ambulatory Source of Information: Patient Limitations: No Limitations Description of Symptoms (Recalled from ER Triage Doc. by RN): PT REPORTS MIGRAINE ONGOING FOR 2 DAYS. HAS TAKEN MIGRAINE MEDICINE, BUT CANNOT TAKE ANYMORE. REPORTS NAUSEA, VOMITING, NECK PAIN AND FACIAL PAIN. REPORTS STABBING PAIN FROM HERNIA SITE History of Present Illness HPI narrative: Please note that above description of symptoms, in this electronic medical record under categorization of recalled from ER triage doctor by RN are reflective of an initial nursing assessment, however, is not reflective of my full history and physical exam that was personally taken and clarified. Consequentially, this preceding description of symptoms, which may include the patient's categorized chief complaint in the EMR, do not reflect my personal clinical impression, and the ultimate description of history of present illness and patient stated complaints should be deferred to this section of the note. Unless stated otherwise or congruent with this section of the note, additional signs, symptoms, or incongruence should be interpreted as inaccurate with my clinical impression. Related Data Home Medications ?Medication ?Instructions ?Recorded ?Confirmed sumatriptan succinate 50 mg tablet 50 mg PO .prn PRN Migraine Headache 01/05/24 07/30/24 Previous Rx's ?Medication ?Instructions ?Recorded ubrogepant 100 mg tablet (Ubrelvy) 100 mg PO ONCE PRN migraine 08/03/24 headache #14 tabs Allergies Allergy/AdvReac Type Severity Reaction Status Date / Time methadone AdvReac Unknown overdose Verified 07/03/24 13:00 ketorolac (From Toradol) AdvReac Verified 07/03/24 13:00 [facility] Disclaimer: The information contained in this section may have been updated after the patient was seen, as this information can be updated by other users. Medical History (Updated 08/08/24 @ 14:10 by Darinel Evans MD) Right groin hernia Left groin hernia History of depression History of COPD Snoring Sleep-disordered breathing Cervicogenic headache Neck pain Asthma Acute left otitis media Tinnitus Right ear pain Impacted cerumen of both ears Surgical History H/O hernia repair History of inguinal hernia repair History of placement of ear tubes History of adenoidectomy Family History Other Cancer Coronary artery disease Family history of COPD (chronic obstructive pulmonary disease) Family history of heart disease CHELLY (obstructive sleep apnea) Social History Smoking Status: Current every day smoker tobacco type: cigarettes packs per day: 2 alcohol intake: never substance use type: denies use current occupational status: other Travel in the last 8 weeks: None household members: spouse marital status: Have you lived/traveled outside [place] in past 30 days?: No Contact w/someone who lives/traveled outside [place] past 30 days?: No Exposure to someone with infectious disease in past 14 days?: No Do you have a fever (greater than 100.4 F or 38 C)?: No Have you tested positive for COVID-19: No Exposed to someone with COVID-19 in past 14 days?: No Do you have a sore throat?: No Do you have a cough?: No Do you have any weakness?: No Do you have any diarrhea?: No Are you experiencing any unusual bleeding?: No Do you have any muscle aches/pain?: No Do you have any abdominal pain?: Yes Are you experiencing loss of taste or smell?: No Other Medical History Have you received the Flu Vaccine for this season: No Have you received the Pneumonia Vaccine: No ROS Obtained: Yes All systems reviewed & no additional complaints except as documented Physical Exam General General appearance: alert Head Head exam: atraumatic and normocephalic Eye Eye exam: Present normal appearance, PERRL and EOMI Neck Neck exam: Present normal inspection, full ROM and trachea midline Respiratory Respiratory exam: Absent respiratory distress, wheezes, stridor, accessory muscle use or prolonged expiratory phase Cardiovascular Cardiovascular exam: Present other (Pulses equal symmetric in upper and lower extremities) Abdominal Exam Abdominal exam: Present soft; Absent distention, tenderness or pulsatile mass Extremities Exam Extremities exam: Absent edema Neurological Exam Neurological exam: Present alert, oriented X3 and CN II-XII intact; Absent motor sensory deficit Skin Skin exam: Present warm and dry; Absent diaphoresis or erythema Medical Decision Making Medical Records Medical records reviewed: Yes I reviewed the patient's medical records. Screening: Per USPSTF and CDC recommendations, given the prevalence of disease in our region, it is our hospital?s policy to screen for HIV and viral Hepatitis for all patients aged 18 and over and those with ongoing risk factors. [place] Inquiry Pt receiving controlled substance: No [place] was queried for this patient: No Vital Signs: 08/08/24 11:54 Temperature 98.3 F Temperature Source Oral Pulse Rate [Radial] 94 H Respiratory Rate 18 Blood Pressure [Right Arm] 111/61 Blood Pressure Mean [Right Arm] 77 Blood Pressure Source [Right Arm] Automatic Cuff Blood Pressure Position [Right Arm] Sitting 02 Sat by Pulse Oximetry 98 Oxygen Delivery Method Room Air Orders (Tests/Meds): ED MEDICATIONS Discontinued Medications Generic Name Dose Route Start Last Admin Trade Name Rodneyq PRN Reason Stop Dose Admin Acetaminophen 1,000 mg 08/08/24 12:05 08/08/24 12:31 Acetaminophen 500mg Tab PO 08/08/24 12:06 1,000 mg ONCE ONE Administration Dexamethasone 10 mg 08/08/24 12:05 08/08/24 12:30 Dexamethasone 4mg Tablet PO 08/08/24 12:06 10 mg ONCE ONE Administration Diphenhydramine HCl 50 mg 08/08/24 12:05 08/08/24 12:30 Diphenhydramine 50mg/Ml Vial IV 08/08/24 12:06 50 mg ONCE ONE Administration Lactated Ringer's 1,000 mls @ 999 mls/hr 08/08/24 12:05 08/08/24 12:30 Lactated Ringer's 1000 Ml Bag IV 08/08/24 13:05 999 mls/hr .Q1H1M ONE Administration Magnesium Sulfate 2 gm in 50 mls @ 50 mls/hr 08/08/24 12:16 08/08/24 12:31 Magnesium Sulfate 2gm/50ml Premix IV 08/08/24 13:15 50 mls/hr ONCE ONE Administration Methocarbamol 1,500 mg 08/08/24 12:16 08/08/24 12:31 Methocarbamol 500mg Tablet PO 08/08/24 12:17 1,500 mg ONCE ONE Administration Prochlorperazine Edisylate 10 mg 08/08/24 12:05 08/08/24 12:30 Prochlorperazine 10mg/2ml Vial IV 08/08/24 12:06 10 mg ONCE ONE Administration ORDERS Category Date Time Status HIV Combo Stat Lab 08/08/24 12:01 Ordered Hepatitis C Ab Qual. W/ RFX Stat Lab 08/08/24 12:01 Ordered Medical Decision Narrative: 44-year-old male with history of migraine presenting with migraine. States that this migraine has been going on starting yesterday, getting worse to today associated with nausea and vomiting provoking hernia pain. Took anti-inflammatories as well as 2 doses of Imitrex, they did not help, so came to the emergency department for further evaluation. History was obtained via conversation with patient. On arrival, patient hemodynamically stable, alert, oriented x4, appropriate, GCS 15, moving all extremities spontaneously, pupils equal and reactive to light. Full physical exam performed and significant for lying in dark room with eyes closed. Neurologically intact. Muscular tension trapezius muscles, but no evidence of meningismus or midline tenderness. Differential includes migraine, tension headache, occipital neuralgia, among others. Patient placed on continuous cardiac monitoring and continuous pulse ox with initial blood pressure 111/61, heart rate 94, saturation 98% on room air. Patient was given migraine cocktail for symptomatic management and correction of underlying abnormalities. Hematologic labs were considered, but not deemed necessary. No meningismus, no systemic signs or symptoms, very clinically well appearing patient. Patient was placed in observation beginning at 1145 in order to have meds, reassess, and determine need for admission versus home-going. The patient was provided migraine cocktail while awaiting results. on reevaluation, patient states that he feels much better and has minimal headache at this time. At this time, I feel patient is appropriate for discharge. Total observation time 2-1/2 hours. Because patient at baseline without signs or symptoms of clinical decompensation, deemed appropriate for discharge. Results were relayed to patient who voiced understanding and were agreeable to outpatient management and follow up. I discussed my clinical impression with patient and answered all questions. At this time, the evidence for any other entities in the differential is insufficient to warrant any further testing or ED observation. This was explained as well. Advisory was given that persistent or worsening symptoms require further evaluation. I confirmed the understanding of this discussion. Drug And Alcohol Counselor disclaimer Much of this encounter note is an electronic maintenance equipment operator spoken language to printed text. Electronic maintenance equipment operator of the spoken language may permit errors. Although I have reviewed the note, some errors may still exist. Critical Care Critical Care Time Critical Care Time: No
[2024-08-08] MEDS: diphenhydrAMINE 50MG/ML VIAL 50 MG IV (12:30)
[2024-08-08] MEDS: PROCHLORPERAZINE 10MG/2ML VIAL 10 MG IV (12:30)
[2024-08-08] MEDS: DEXAMETHASONE 4MG TABLET 10 MG PO (12:30)
[2024-08-08] MEDS: LACTATED RINGERS 1000ML 1,000 ML 999 ML IV (12:30)
[2024-08-08] MEDS: METHOCARBAMOL 500MG TABLET 1500 MG PO (12:31)
[2024-08-08] MEDS: MAGNESIUM SULFATE IN WATER 2 GM/50 ML PIGGYBACK IV (12:31)
[2024-08-08] MEDS: ACETAMINOPHEN 500MG TAB 1000 MG PO (12:31)
--- NOTE | 2024-08-08 12:55 | PC.NURSE ---
Established 18ga IV in pateints R AC with success. As per the MAR meds were administered, 1000mg of Acetaminophen, 10mg of dexamethasone, 10mg of Compazine, 1500mg of methocarbamol, 50mg of Benadryl, 2gm of mag sulfate, and 1000mL's of LR
--- NOTE | 2024-08-08 13:35 | PC.NURSE ---
rounded on the pt. the pt voices that he does not need anything at this time. call light is within reach of the pt.
[2024-08-08 14:19] VITALS: BP 136/74; PULSE 71; RESP 16; TEMP 36.6; O2SAT 97
--- NOTE | 2024-08-08 14:21 | PC.NURSE ---
1208- Patient awaiting evaluation by ED provider. Expresses no needs at this time. A & O x 4. 1212- ED provider at bedside. 1313- Patient appears to be sleeping, respirations are even and unlabored, no distress noted, skin is pink. 1414- IV removed, intact, bleeding controlled. Discharged.
== END 2024-08-08 14:20 | disposition home or self-care (01) ==
PROVIDERS: Emergency Provider Emergency Medicine; PCP Internal Medicine
DX: G43.909 Migraine, unspecified, not intractable, without status migrainosus (principal)
CPT/HCPCS: 96361; 96374; 96375; 99284; J0780; J1200; J3475; J7120; J8540

== ENCOUNTER 2024-08-09 08:23 | Emergency (ER) | payer BC, SELFPAY ==
[2024-08-09 08:23] VITALS: BP 118/72; PULSE 70; RESP 20; TEMP 36.9; O2SAT 100; BMI 20.2
[2024-08-09 08:28] VITALS: BP 118/72; PULSE 73; O2SAT 99
[2024-08-09 08:30] VITALS: BP 113/74; PULSE 63; O2SAT 98
[2024-08-09 09:00] VITALS: BP 112/73; PULSE 60; O2SAT 98
--- NOTE | 2024-08-09 09:07 | CT_ITS ---
FINAL REPORT TECHNIQUE: Noncontrast exam This study was performed with techniques to keep radiation doses as low as reasonably achievable, (ALARA). Individualized dose reduction techniques using automated exposure control or adjustment of mA and/or kV according to the patient's size were employed. CLINICAL HISTORY: migraine, worse than normal COMPARISON: 08/06/2022 FINDINGS: CT HEAD: No abnormal density is seen. Ventricles are normal. There is no hemorrhage. No mass effect is seen. Bone windows show no evidence of fracture. There is acute sphenoid sinusitis present, with the other paranasal sinuses clear. IMPRESSION: No acute intracranial findings. Acute sphenoid sinusitis, with the other paranasal sinuses clear. Reviewed, Interpreted and Dictated by Devonte Lane MD Transcribed by [place] Authenticated and [facility]
--- NOTE | 2024-08-09 09:09 | ED_ITS ---
Discharge Plan Disposition Patient Disposition: Home, Self-Care Condition: Good Prescriptions Prescriptions: New amoxicillin-pot clavulanate 875-125 mg tablet 1 tab PO BID 14 Days Qty: 28 0RF No Action sumatriptan succinate 50 mg tablet 50 mg PO .prn PRN (Reason: Migraine Headache) Patient Comments: TAKE ONE TABLET BY MOUTH AT ONSET OF MIGRAINE. IF SYMPTOMS PERSIST, A SECOND DOSE MAY BE TAKEN IN 2 HOURS. Ubrelvy 100 mg tablet 100 mg PO ONCE PRN (Reason: migraine headache) Qty: 14 2RF Referrals Follow up/Referrals: Rashid Venegas DO [Primary Care Provider] - See instructions Activity Restrictions/Add. Instructions Additional Instructions/Restrictions: You were evaluated in the emergency department today. You have a sinus infection noted on CT scan. You also have a high white blood cell count which could be from the sinus infection and also could be from the steroids provided to you yesterday. Please follow-up very closely with primary care as well as with neurology. Contact them and let them know that you were seen here and need to be seen sooner rather than later. Return to the emergency department for new or worsening symptoms. Clinical Impressions Clinical Impression: Headache, Sinusitis Stand Alone Forms Stand Alone Forms: Work/School Release Instructions Patient Instructions: DI for Migraine, DI for Sinusitis, DI for Headache Print Language Print Language: Urdu Discharge ED Provider: Kimberly Cunningham General Adult HPI General Chief complaint: Headache Stated complaint: Headache Time Seen by Provider: 08/09/24 08:30 Mode of Arrival: Ambulatory Source of Information: Patient Limitations: No Limitations Description of Symptoms (Recalled from ER Triage Doc. by RN): pt is here again today from yesterday for migraine/ neck pain. he said it went away briefly but is back again. pt has taken 2 doses of imitrex this morning already History of Present Illness HPI narrative: This patient is a 44-year-old male with a history of migraines, tobacco use, COPD, chronic back pain presenting to the emergency department for evaluation with concern for migraine. Patient states that it went away briefly after being evaluated yesterday but is back again. He has taken his Imitrex without good improvement. Yesterday, he got a migraine cocktail of a bolus of IV fluids, IV magnesium, oral Robaxin, oral Tylenol, IV Compazine, IV Benadryl, and IV dexamethasone. No workup was obtained given that this is not different from his prior migraines. He was discharged home after symptomatic improvement. He denies any new neurologic symptoms, just noting this feels little bit worse than his usual migraines that he is able to manage at home, and he also denies any fevers or infectious symptoms. Related Data Home Medications ?Medication ?Instructions ?Recorded ?Confirmed sumatriptan succinate 50 mg tablet 50 mg PO .prn PRN Migraine Headache 01/05/24 08/09/24 Previous Rx's ?Medication ?Instructions ?Recorded ubrogepant 100 mg tablet (Ubrelvy) 100 mg PO ONCE PRN migraine 08/03/24 headache #14 tabs amoxicillin 875 mg-potassium 1 tab PO BID 14 days #28 tabs 08/09/24 clavulanate 125 mg tablet Allergies Allergy/AdvReac Type Severity Reaction Status Date / Time methadone AdvReac Unknown overdose Verified 08/09/24 09:11 ketorolac (From Toradol) AdvReac Nausea Verified 08/09/24 09:11 [facility] Disclaimer: The information contained in this section may have been updated after the patient was seen, as this information can be updated by other users. Medical History Right groin hernia Left groin hernia History of depression History of COPD Snoring Sleep-disordered breathing Cervicogenic headache Neck pain Asthma Acute left otitis media Tinnitus Right ear pain Impacted cerumen of both ears Surgical History H/O hernia repair History of inguinal hernia repair History of placement of ear tubes History of adenoidectomy Family History Other Cancer Coronary artery disease Family history of COPD (chronic obstructive pulmonary disease) Family history of heart disease CHELLY (obstructive sleep apnea) Social History Smoking Status: Current every day smoker tobacco type: cigarettes packs per day: 2 alcohol intake: never substance use type: denies use current occupational status: other Travel in the last 8 weeks: None household members: spouse marital status: Have you lived/traveled outside [place] in past 30 days?: No Contact w/someone who lives/traveled outside US past 30 days?: No Exposure to someone with infectious disease in past 14 days?: No Do you have a fever (greater than 100.4 F or 38 C)?: No Have you tested positive for COVID-19: No Exposed to someone with COVID-19 in past 14 days?: No Do you have a sore throat?: No Do you have a cough?: No Do you have any weakness?: No Do you have any diarrhea?: No Are you experiencing any unusual bleeding?: No Do you have any muscle aches/pain?: No Do you have any abdominal pain?: No Are you experiencing loss of taste or smell?: No Other Medical History Have you received the Flu Vaccine for this season: No Have you received the Pneumonia Vaccine: No ROS Obtained: Yes All systems reviewed & no additional complaints except as documented Physical Exam General General appearance: alert and in no apparent distress Head Head exam: atraumatic and normocephalic Eye Eye exam: Present normal appearance, PERRL and EOMI ENT ENT exam: Present normal exam, normal oropharynx, mucous membranes moist and normal external ear exam Neck Neck exam: Present normal inspection, full ROM and trachea midline; Absent tenderness Chest Chest inspection: Present normal inspection and symmetric chest wall rise; Absent tenderness Respiratory Respiratory exam: Present normal lung sounds bilaterally; Absent respiratory distress, wheezes, stridor or accessory muscle use Cardiovascular Cardiovascular exam: Present regular rate and normal rhythm Abdominal Exam Abdominal exam: Present soft; Absent distention, tenderness or guarding Extremities Exam Extremities exam: Present normal inspection, full ROM and normal capillary refill; Absent tenderness or edema Back Exam Back exam: Present normal inspection and full ROM; Absent tenderness Neurological Exam Neurological exam: Present alert, oriented X3, CN II-XII intact and normal gait; Absent motor sensory deficit Psychiatric Psychiatric exam: Present normal affect and normal mood Skin Skin exam: Present warm and dry Medical Decision Making Medical Records Medical records reviewed: Yes I reviewed the patient's medical records. Screening: Per USPSTF and CDC recommendations, given the prevalence of disease in our region, it is our hospital?s policy to screen for HIV and viral Hepatitis for all patients aged 18 and over and those with ongoing risk factors. [place] Inquiry Pt receiving controlled substance: No Vital Signs: 08/09/24 08:23 08/09/24 08:28 08/09/24 08:30 Temperature 98.5 F Temperature Source Oral Pulse Rate 73 63 Pulse Rate [Left Radial] 70 Respiratory Rate 20 Blood Pressure 118/72 113/74 Blood Pressure [Right Arm] 118/72 Blood Pressure Mean Blood Pressure Mean [Right Arm] 87 Blood Pressure Source Blood Pressure Position 02 Sat by Pulse Oximetry 100 99 98 Oxygen Delivery Method Room Air 08/09/24 09:00 08/09/24 10:37 08/09/24 11:31 Temperature 98.0 F Temperature Source Oral Pulse Rate 60 71 70 Pulse Rate [Left Radial] Respiratory Rate 18 Blood Pressure 112/73 120/63 122/65 Blood Pressure [Right Arm] Blood Pressure Mean 85 Blood Pressure Mean [Right Arm] Blood Pressure Source Automatic Cuff Blood Pressure Position Sitting 02 Sat by Pulse Oximetry 98 97 Oxygen Delivery Method Room Air Lab Data Lab results reviewed: Yes I reviewed the patient's lab results. Lab Results 08/09/24 08:50: WBC 25.6 H*, RBC 4.46 L, Hgb 13.9 L, Hct 40.5 L, MCV 90.8, MCH 31.2, MCHC 34.3, RDW 12.4, Plt Count 303, MPV 9.4, Neut % (Auto) 81.9 H, Lymph % (Auto) 10.7, Morrill % (Auto) 6.6, Eos % (Auto) 0.0 L, Baso % (Auto) 0.2, Neut # (Auto) 21.0 H, Lymph # (Auto) 2.7, Morrill # (Auto) 1.7 H, Eos # (Auto) 0.0, Baso # (Auto) 0.1, Total Counted 100, Neutrophils % (Manual) 80 H, Band Neutrophils % 3.0, Lymphocytes % (Manual) 10, Atypical Lymphs % 1.0, Monocytes % (Manual) 5, Basophils % (Manual) 1.0, Platelet Estimate Normal, RBC Morphology Normal, Sodium 136, Potassium 4.2, Chloride 105, Carbon Dioxide 31 H, Anion Gap 4.2 L, B UN 8 L, Creatinine 0.70, Estimated Creat Clear 127, Estimated GFR 123, Est GFR ( Amer) 149, Glucose 109 H, Calcium 9.3, Total Bilirubin 0.3, AST 23, ALT 24, Alkaline Phosphatase 93, Total Protein 6.9, Albumin 4.1, Globulin 2.8, Albumin/Globulin Ratio 1.5 08/09/24 09:35: SARS-CoV-2 (PCR) Not detected, Influenza A Untype (PCR) Not detected, Influenza Type B (PCR) Not detected 08/09/24 08:50 08/09/24 08:50 Orders (Tests/Meds): ED MEDICATIONS Discontinued Medications Generic Name Dose Route Start Last Admin Trade Name Rodneyq PRN Reason Stop Dose Admin Acetaminophen 1,000 mg 08/09/24 09:07 08/09/24 09:14 Acetaminophen 1,000mg/100ml Vial IV 08/09/24 09:08 1,000 mg ONCE ONE Administration Amoxicillin/Clavulanate Potassium 1 each 08/09/24 11:17 08/09/24 11:29 Amoxicillin/Clavulanate Potassium 875/125mg Tablet PO 08/09/24 11:18 1 each ONCE ONE Administration Dexamethasone Sodium Phosphate 10 mg 08/09/24 10:37 08/09/24 10:48 Dexamethasone 4mg/Ml 1ml Vial IV 08/09/24 10:38 10 mg ONCE ONE Administration Droperidol 2.5 mg 08/09/24 09:07 08/09/24 09:14 Droperidol 5mg/2ml Vial IV 08/09/24 09:08 2.5 mg ONCE ONE Administration Lactated Ringer's 1,000 mls @ 999 mls/hr 08/09/24 09:09 08/09/24 09:14 Lactated Ringer's 1000 Ml Bag IV 08/09/24 10:09 999 mls/hr .Q1H1M ONE Administration Ibuprofen 800 mg 08/09/24 10:37 08/09/24 10:48 Ibuprofen 400 Mg Tablet PO 08/09/24 10:38 800 mg ONCE ONE Administration Lidocaine 1 each 08/09/24 10:37 08/09/24 10:48 Lidocaine 5% Transdermal Patch TP 08/09/24 10:38 1 each ONCE ONE Administration ORDERS Category Date Time Status CT head/brain wo con Stat Cat Scan 08/09/24 09:07 Completed CBC w/Auto Diff [Complete Blood Count Auto Diff] Stat Lab 08/09/24 08:50 Completed CMP [Comprehensive Metabolic Panel] Stat Lab 08/09/24 08:50 Completed Rapid PCR Covid and Flu A/B Stat Lab 08/09/24 09:35 Completed ECG Data Tracing #1: I reviewed this ECG and interpreted as documented below: Normal sinus rhythm with sinus arrhythmia with a ventricular rate of 84 bpm. Early repolarization. No acute STEMI. Normal QTc at 389 ms ECG initial impression date: 08/09/24 ECG initial impression time: 09:25 Medical Decision Narrative: In summary, this patient is a 44-year-old male presenting to the Emergency Department for evaluation of migraine. Differential diagnoses considered include but are not limited to migraine, tension headache, intracranial hemorrhage, intracranial mass. Ruling out the most morbid conditions drove assessment. It should be noted patient's history includes migraines, COPD, tobacco use which are not at goal therapy. This complicates all aspects of care by increasing patient's risk for morbidity. I reviewed patient's past medical records and noted evaluation yesterday for migraine as well as evaluations here multiple times in the past for migraines. Please see details from yesterday's evaluation in HPI. On exam, the patient is lying in bed in no acute distress and is completely neurologically intact. Vitals are normal on cardiac telemetry. Workup included CBC, CMP, CT head without contrast given that he states that this is a little bit worked than his usual migraines and he has already been evaluated once in the last 24 hours. He was given IV droperidol, acetaminophen, IV fluids. EKG was obtained prior to protocol which demonstrated no acutely concerning abnormalities, normal QTc. Given this, droperidol was given.. I independently interpreted CT scan prior to the radiologist read and noted no intracranial hemorrhage or space-occupying lesion. He does have sinusitis. Please see their read for final interpretation. Labs were obtained that demonstrated leukocytosis, which could be related to the dexamethasone given to him yesterday. He is afebrile with no other symptoms no obvious concerns for infection based on exam otherwise. No meningismus or altered mental status. He does have sinusitis on CT, for which I gave him Augmentin. He had some continued pain at the base of his head after administration of interventions above, so I gave him IV dexamethasone and a Lidoderm patch with good improvement after that. On multiple subsequent reassessments, he was feeling a lot better with significant improvement in his headache. I considered admission, however given resolution of symptoms and history of known migraines without new significant features, I feel it is appropriate for discharge home. I did prescribe Augmentin for sinusitis noted on CT. He was given instructions for supportive management, strict return precautions, and instructions for close outpatient follow-up. Critical Care Critical Care Time Critical Care Time: No
--- NOTE | 2024-08-09 09:11 | PC.NURSE ---
pt told er the melissa pain medicine that works is oxycodone and then he informed nurse he needed his head of bed lowered and two pillows and a warm blanket in a very curtly manner
[2024-08-09] MEDS: LACTATED RINGERS 1000ML 1,000 ML 999 ML IV (09:14)
[2024-08-09] MEDS: ACETAMINOPHEN 1,000MG/100ML VIAL 1000 MG IV (09:14)
[2024-08-09] MEDS: droPERidol 5MG/2ML VIAL 2.5 MG IV (09:14)
[2024-08-09 09:21] LABS: Alanine Aminotransferase 24 U/L (12-78); Albumin Level 4.1 g/dl (3.5-5.0); Albumin/Globulin Ratio 1.5 (1.1-1.8); Alkaline Phosphatase 93 U/L (38-126); Anion Gap 4.2 mEq/L (5-15); Aspartate Amino Transferase 23 U/L (17-59); Bilirubin,Total 0.3 mg/dl (0.2-1.3); Blood Urea Nitrogen 8 mg/dl (9-20); Calcium 9.3 mg/dl (8.4-10.2); Carbon Dioxide 31 mmol/L (22.0-30.0); Chloride 105 mmol/L (98-107); Creatinine Clearance Estimated 127 mL/min (50-200); Estimated Glomerular Filt Rate 123 ml/min (>60); GFR (African American) 149 ML/MIN (>60); Globulin 2.8 g/dL (1.3-3.2); Glucose 109 mg/dl (74-100); Potassium 4.2 mmoL/L (3.5-5.1); Sodium 136 mmol/L (136-145); Total Protein,Serum 6.9 g/dl (6.3-8.2)
[2024-08-09 09:23] LABS: Basophils # 0.1 K/mm3 (0-0.2); Basophils % 0.2 % (0.1-2.0); Hematocrit 40.5 % (42.0-52.0); Hemoglobin 13.9 g/dL (14.1-18.0); Lymphocytes # 2.7 K/mm3 (0.7-4.5); Lymphocytes % 10.7 % (10-50); Mean Corpuscular HGB Conc 34.3 g/dL (31.8-35.4); Mean Corpuscular Hemoglobin 31.2 pg (27.0-31.2); Mean Corpuscular Volume 90.8 fl (80-94); Mean Platelet Volume 9.4 fl (7.4-10.4); Monocytes # 1.7 K/mm3 (0.1-1.0); Monocytes % 6.6 % (1.7-9.3); Neutrophils % 81.9 % (37.0-80.0); Platelet Count 303 K/mm3 (142-424); Red Blood Count 4.46 M/mm3 (4.60-6.20); Red Cell Distribution Width 12.4 % (11.5-17.5); White Blood Count 25.6 K/mm3 (4.8-10.8)
--- NOTE | 2024-08-09 09:24 | ECG_ITS ---
APPROVED REPORT Exam: Resting ECG HR:84 bpm ECG Measurements Heart Rate 84 AXES AR 132 P 76 QRSd 110 QRS 84 QT 348 T 76 QTc 389 Conclusion SINUS RHYTHM WITH SINUS ARRHYTHMIA POSSIBLE RIGHT VENTRICULAR CONDUCTION DELAY [RSR (QR) IN V1/V2] Benign early repolarization No STEMI Electronically signed by : DILIP RAMIREZ, 08/10/2024 07:11:28
[2024-08-09 09:35] LABS: MANUAL DIFFERENTIAL MANUAL DIFFERENTIAL (MANUAL DIFF)
[2024-08-09 09:39] LABS: Coronavirus 19, PCR Not Detected (NotDetected); Influenza A, PCR Not Detected (NotDetected); Influenza B, PCR Not Detected (NotDetected)
[2024-08-09 10:37] VITALS: BP 120/63; PULSE 71; O2SAT 97
[2024-08-09] MEDS: DEXAMETHASONE 4MG/ML 1ML VIAL 10 MG IV (10:48)
[2024-08-09] MEDS: IBUPROFEN 400 MG TABLET 800 MG PO (10:48)
[2024-08-09] MEDS: LIDOCAINE 5% TRANSDERMAL PATCH 1 EACH TP (10:48)
[2024-08-09] MEDS: AMOXICILLIN/CLAVULANATE POTASSIUM 875/125MG TABLET 1 EACH PO (11:29)
[2024-08-09 11:31] VITALS: BP 122/65; PULSE 70; RESP 18; TEMP 36.7; O2SAT 99
[2024-08-09 12:19] LABS: Lymphocytes % 10 % (10-50); Monocytes % 5 % (2-9); Neutrophils % 80 % (42-76); Total Cells Counted 100
[2024-08-09 12:20] LABS: Platelet Estimate Normal; RBC Morphology Normal
== END 2024-08-09 11:31 | disposition home or self-care (01) ==
PROVIDERS: Emergency Provider Emergency Medicine; PCP Internal Medicine
DX: J32.9 Chronic sinusitis, unspecified (principal); R51.9 Headache, unspecified; F17.210 Nicotine dependence, cigarettes, uncomplicated
CPT/HCPCS: 70450; 80053; 85007; 85025; 85027; 87636; 93005; 96361; 96374; 96375; 99284; J0131; J1100; J1790; J7120

== ENCOUNTER 2025-03-15 08:51 | Outpatient (CLI) | payer BC, SELFPAY ==
--- OUTSIDE RECORDS SUMMARY | 2025-01-18 15:15 | XMS_ITS | Encounter Summary ---
[facility] Address [address] [place] [address] Care Team Providers Care School Occupational Therapist Name Role Phone Rashid Venegas DO Primary Care Provider + Reason for Visit * Surgical (Routine) - Closed Specialty Diagnoses / Procedures Referred By Contac t Referred To Contact Pain Medicine Diagnoses Complex regional pain syndrome type 2, affecting unspecified site Status post inguinal hernia repair Chronic pain after repair of hernia Procedures External Facility Surgical/Procedural Request Hailee Salcedo PA-C [address] [facility] [address] [place] [address] Phone: tel: fax: Paddy Pantoja MD [address] [place] [address] Phone: tel: fax: Referral ID Status Reason Start Date Expiration Date V isits Requested Visits Authorized [id number] Closed Other 12/11/2024 06/12/2025 1 1 Encounter Details Date Type Department Care Team (Late st Contact Info) Description 01/18/2025 3:15 PM EDT Outside Facility Service [facility] [address] [place] [address] [place] [address] [place] [address] Complex regional pain syndrome type 2, affecting unspecified site (Primary Dx) Social History Tobacco Use Types Packs/Day Years Used Date Smoking Tobacco: Every Day Cigarettes 1 29.8 Started: 06/13/1995 Smokeless Tobacco: Never Alcohol Use Standard Drinks/Week Comments Not Currently 0 (1 standard drink = 0.6 oz pur e alcohol) PHQ-2 Answer Date Recorded Patient Health Questionnaire-9 Score 16 12/13/2024 Sex and Gender Information Value Date Recorded Sex Assigned at Not on file Legal Sex Male 9:56 AM EST Gender Identity Not on file Sexual Orientation Not on file documented as of this encounter Progress Notes * Paddy Pantoja MD - 01/18/2025 3:15 PM EDTAddended by: PADDY PANTOJA on: 01/18/2025 04:30 PM Modules accepted: Orders documented in this encounter Plan of Treatment Upcoming Encounters Date Type Department Care Team (Late st Contact Info) Description 03/26/2025 1:50 PM EDT Office Visit [facility] [address] [facility] [address] [place] [phone] Paddy Pantoja MD [address] [facility] [address] [place] [address] documented as of this encounter Visit Diagnoses Diagnosis Complex regional pain syndrome type 2, affecting unspecified site- Primary documented in this encounter Care Teams School Occupational Therapist Relationship Specialty Start Date End Date Rashid Venegas DO [address] [facility] [address] [place] [address] PCP - General Internal Medicine 07/19/24 documented as of this encounter
--- OUTSIDE RECORDS SUMMARY | 2025-01-31 08:00 | XMS_ITS | Encounter Summary ---
Author Organization [facility] ystem Address [address] [place] [address] Care Team Providers Care Boiler Out Name Role Phone Rashid Venegas Christiano Primary Care Provider + Reason for Visit * Reason Comments Follow-up Post- ganglion stimu lator implant Romero Back Pain Encounter Details Date Type Department Care Team (Late st Contact Info) Description 01/31/2025 8:00 AM EDT Office Visit [facility] [address] [address] Hailee Salcedo PA-C [address] [place] [address] [place] [address] S/P insertion of spinal cord stimulator (Primary Dx); Complex regional pain syndrome type 2, affecting unspecified site; Status post inguinal hernia repair; Chronic pain after repair of hernia; Chronic pain syndrome Social History Tobacco Use Types Packs/Day Years Used Date Smoking Tobacco: Every Day Cigarettes 1 29.8 Started: 06/13/1995 Smokeless Tobacco: Never Tobacco Cessation:Ready to Q uit: Not Asked; Counseling Given: Not Answered Alcohol Use Standard Drinks/Week Comments Not Currently 0 (1 standard drink = 0.6 oz pur e alcohol) PHQ-2 Answer Date Recorded Patient Health Questionnaire-9 Score 10 01/31/2025 Sex and Gender Information Value Date Recorded Sex Assigned at Not on file Legal Sex Male 9:56 AM EST Gender Identity Not on file Sexual Orientation Not on file documented as of this encounter Last Filed Vital Signs Vital Sign Reading Time Taken Comments Blood Pressure - - Pulse - - Temperature - - Respiratory Rate - - Oxygen Saturation - - Inhaled Oxygen Concentration - - Weight 63.5 kg (140 lb) 01/31/2025 8:14 AM EDT Height 180.3 cm (5' 10.98 ) 01/31/2025 8:14 AM E DT Body Mass Index 19.53 01/31/2025 8:14 AM EDT documented in this encounter Functional Status documented as of this encounter Progress Notes * Hailee Salcedo PA-C - 01/31/2025 8:00 AM EDT Referring Physician: No referring provider defined for this encounter. Primary Physician: Rashid Venegas DO CHIEF COMPLAINT or REASON FOR VISIT: Follow-up (Post- ganglion stimulator implant Romero) and Back Pain Initial history of present illness on 10/08/2024: Mr. Caesar Castillo is 44 y.o. male who presents as a new patient referral for evaluation and treatment of chronic left inguinal pain. Patient underwent a bilateral inguinal hernia repair in February of 2024. The right side was performed laparoscopically; however, the left side required open surgical te chnique. Subsequent to surgery patient developed burning pain of the left lower quadrant which has not resolved. He has been treated for this issue by a pain management clinic with Dr. Tony Maurice. That doctor performed a left ilioinguinal block bilaterally without sustained relief. Patient underwentpsychiatric testing for preoperative clearance prior to spinal stimulator trial. He did not ultimate ly undergo this trial and wishes to transfer his care. He has trialed membrane stabilizers without significant relief. He has not undergone sympathetic plexus block. He additionally complains of somemild axial low back pain. He denies any history of spinal surgery or injections on his back. Deniesany significant lower extremity radiation. The pain in his left groin radiates into the penis and has prevented him from being able to have intimate relations with his . Interval history: Patient returns to clinic today. He is approximately 2 weeks out from permanent dorsal root ganglion stimulator implant. He has been healing up from this procedure appropriately. He does not particularly complain of any chronic left inguinal or groin pain today. He is having some right groin pain as well as pain around his IPG site. He denies any systemic signs of infection such as fever, chills,malaise, night sweats. Denies any drainage or local signs of infection. Interventions: 10/23/2024: Left superior hypogastric plexus sympathetic block with 80% relief for 2.5 days 11/22/2024: Left T12, L1, S2 DRG trial with 80-100% relief 01/18/2025: Left T12, L1, S2 DRG implant with Objective Pain Scoring: BRIEF PAIN INVENTORY: Total score: Pain Score 01/31/25 0814 PainSc: 6 PainLoc: Back PHQ-2: 2 PHQ-9: 10 Opioid Risk Tool: Review of Systems: ROS negative except as otherwise noted Past Medical History: Past Medical History: Diagnosis Date Asthma Cervical disc disorder Chronic pain disorder Cluster headache Depression Ear infection Headache, tension-type Joint pain Low back pain Lumbosacral disc disease Migraines Neck pain PTSD (post-traumatic stress disorder) Spinal stenosis Past Surgical History: Past Surgical History: Procedure Laterality Date ADENOIDECTOMY HERNIA REPAIR SPINAL CORD STIMULATOR IMPLANT TRIGGER POINT INJECTION Family History History reviewed. No pertinent family history. Social History Social History Socioeconomic History Marital status: Other Tobacco Use Smoking status: Every Day Current packs/day: 1.00 Average packs/day: 1 pack/day for 29.6 years (29.6 ttl pk-yrs) Types: Cigarettes Start date: 06/13/1995 Smokeless tobacco: Never Vaping Use Vaping status: Never Used Substance and Sexual Activity Alcohol use: Not Currently Drug use: Not Currently Types: Marijuana Comment: Has medical marijuana card Sexual activity: Not Currently Partners: Female Comment: Marraige Medications: Current Outpatient Medications: Gel Base gel, Use 2 g 4 (Four) Times a Day. KETAMINE 10%, GABAPENTIN 6%, LIDOCAINE 5%, AMITRIPTYLINE 2%, BUPIVACAINE 2%, MELOXICAM 0.1%, Disp: 60 g, Rfl: 5 celecoxib (CeleBREX) 200 MG capsule, Take 1 capsule by mouth Daily. (Patient not taking: Reported on 01/31/2025), Disp: 60 capsule, Rfl: 0 Chlorhexidine Gluconate 4 % solution, Apply 1 Application topically to the appropriate area as directed Daily. Apply to low back, abdomen, buttocks for 5 days prior to procedure (Patient not taking: Reported on 12/13/2024), Disp: 236 mL, Rfl: 0 methocarbamol (ROBAXIN) 750 MG tablet, Take 1 tablet by mouth 2 (Two) Times a Day As Needed for Muscle Spasms. (Patient not taking: Reported on 01/31/2025), Disp: 60 tablet, Rfl: 0 mupirocin (BACTROBAN) 2 % nasal ointment, Administer 1 Application into the nostril(s) as directed by provider 3 (Three) Times a Day. (Patient not taking: Reported on 12/13/2024), Disp: 15 g, Rfl: 0 oxyCODONE-acetaminophen (PERCOCET) 10-325 MG per tablet, Take 1 tablet by mouth Every 6 (Six) HoursAs Needed for Moderate Pain. (Patient not taking: Reported on 01/31/2025), Disp: 12 tablet, Rfl: 0 Physical Exam: Vitals: 01/31/25 0814 Weight: 63.5 kg (140 lb) Height: 180.3 cm (70.98 ) PainSc: 6 PainLoc: Back General: Alert and oriented, No acute distress. HEENT: Normocephalic, atraumatic. Cardiovascular: No gross edema Respiratory: Respirations are non-labored Lumbar Spine: No masses or atrophy Range of motion - Flexion normal. Extension normal. Facet Loading: positive bilaterally Facet Palpation - mildy tender Tonio finger/Gaenslen's/Amanuel's/GAURI/Thigh thrust - Straight leg raise/slump test: Negative bilaterally Multifidus toe-touch test: Motor Exam: Strength: Rate on 1-5 scale Right Left L1/2- hip flexion 5/5 5/5 L3- knee extension 5/5 5/5 L4- ankle dorsiflexion 5/5 5/5 L5- great toe extension 5/5 5/5 S1- ankle plantarflexion 5/5 5/5 Sensory Exam: Allodynia in left inguinal crease Neurologic: Cranial Nerves II-XII are grossly intact. Berman???s -negative bilaterally Clonus -negative bilaterally Psychiatric: Cooperative. Gait: Normal Assistive Devices: None Prominent IPG in the left flank. IPG incision site is healing appropriately without surrounding signs of infection such as erythema, inflammation, induration, or purulent drainage. IPG incision siteand dorsal root ganglion stimulator insertion sites are clean dry and intact. Denies any systemic or local signs of infection. Imaging Studies: No results found for this or any previous visit. Independent review of radiographic imaging: available for my interpretation is a lumbar MRI dated June 02, 2024: no high grade neuroforaminal or canal stenosis. 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 Mild facet spondylosis. Annular tear at L2/3. Impression & Plan: 10/08/2024: Caesar Castillo is a 44 y.o. male with past medical history significant for asthma, low backpain, bilateral inguinal hernia repair who presents to the pain clinic for evaluation and treatmentof chronic left groin pain. Evaluation consistent with complex regional pain syndrome type II. We discussed superior hypogastric plexus block for sympathetically mediated pain. If no benefit, can consider DRG trial. I had a discussion with the patient regarding the risks of the procedure including bleeding, infection, damage to surrounding structures.We discussed the potential adverse effects of corticosteroid injection including flushing of the face, lipodystrophy, skin discoloration, elevatedblood glucose, increased blood pressure. Risks of frequent steroid administration include weight gain, hormonal changes, mood changes, osteoporosis. 11/06/2024: Excellent but transient relief from left superior hypogastric plexus block. Will obtain appropriate psychiatric clearance for potential T12, L1, S2 DRG trial with Romero 11/26/2024: Excellent relief from DRG trial. Stimulator trial leads were removed without incident with tip intact. Will plan for permanent implant 12/13/2024: Rescheduled DRG trial to 04/16/2025. Will send muscle relaxer, anti- inflammatory, and topical neuropathic cream to help temporize symptoms. Right groin pain seems to be more mechanical secondary to inguinal hernia repair material. 01/31/2025: 2 weeks s/p T12, L1, S2 DRG stimulator. Patient healing appropriately. 1. S/P insertion of spinal cord stimulator 2. Complex regional pain syndrome type 2, affecting unspecified site 3. Status post inguinal hernia repair 4. Chronic pain after repair of hernia 5. Chronic pain syndrome PLAN: 1. Medications: - Topical neuropathic cream - Continue Celebrex 200 mg daily ss needed - Today methocarbamol 750 mg 1 to 2 tablets daily as needed 2. Physical Therapy: Continue postoperative restrictions for an additional 4-6 weeks 3. Psychological: Appropriate psychiatric clearance received 4. Complementary and alternative (CAM) Therapies: 5. Labs/Diagnostic studies: None indicated 6. Imagin. Interventions: 2 weeks s/p permanent left T12, L1, S2 dorsal root ganglion stimulator implant with Romero. Patient healing appropriately. Incisions healing appropriately. Continue postoperative restrictions. Allow warm soapy water to run over incisions but avoid any vigorous scrubbing or soakingof incision. He understands the signs and symptoms of infection. Romero device rep here for questions and device interrogation 8. Referrals: None indicated 9. Records: 10. Lifestyle goals: Follow-up 1 month [facility] Hailee Salcedo PA-C Quality Metrics: Caesar Castillo reports a pain score of 6. Given his pain assessment as noted, treatment options were discussed and the following options were decided upon as a follow-up plan to address the patient's pain: continuation of current treatment plan for pain. Patient screened positive for depression based on a PHQ-9 score of 10 on 01/31/2025. Follow-up recommendations include: PCP managing depression. Please note that portions of this note were completed with a voice recognition program. Any copied data in any portion of my note from previous notes included in the HPI, PE, MDM and/or assessment and plan has been reviewed by myself and accurate as of this date. The Century Cures Act makes medical notes like this available to patients in the interest of transparency. This is a medical document intended as peer to peer communication. It is written in medical language and may contain abbreviations or verbiage that are unfamiliar. It may appear blunt or direct. Medical documents are intended to carry relevant information, facts as evident, and the clinical opinion of the practitioner. documented in this encounter Plan of Treatment Upcoming Encounters Date Type Department Care Team (Late st Contact Info) Description 03/26/2025 1:50 PM EDT Office Visit [facility] [address] [facility] [address] [place] [address] Juaquin Pantoja MD [address] [place] [address] documented as of this encounter Visit Diagnoses Diagnosis S/P insertion of spinal cord stimulator- Primary Complex regional pain syndrome type 2, affecting unspecified site Status post inguinal hernia repair Other postprocedural status Chronic pain after repair of hernia Chronic pain syndrome documented in this encounter Care Teams Boiler Out Relationship Specialty Start Date End Date Rashid Venegas DO [address] [place] [address] PCP - General Internal Medicine 07/19/24 documented as of this encounter
--- OUTSIDE RECORDS SUMMARY | 2025-02-05 09:33 | XMS_ITS | Encounter Summary ---
Author Organization [facility] yste Address [address] [place] [address] Care Team Providers Care Pss Delivery Professional Name Role Phone Rashid Venegas Christiano Primary Care Provider + Reason for Visit * Reason Comments Back Injury Encounter Details Date Type Department Care Team ([facility] st Contact Info) Description 02/05/2025 9:33 AM EDT - 02/05/2025 10:56 AM EDT Emergency [facility] [address] [phone] Trey Greenfield, DO [address] [place] [address] Acute on chronic low back pain (Primary Dx) Discharge Disposition: Home or Self Care Social History Tobacco Use Types Packs/Day Years Used Date Smoking Tobacco: Every Day Cigarettes 1 29.8 Started: 06/13/1995 Smokeless Tobacco: Never Alcohol Use Standard Drinks/Week Comments Not Currently 0 (1 standard drink = 0.6 oz pur e alcohol) Abuse Screen Answer Date Recorded Feels Unsafe at Home or Work/School no 02/05/2025 Feels Threatened by Someone no 01/12 Does Anyone Try to Keep You From Having Contact with Others or Doing Things Outside Your Home? no 02/05/2025 Physical Signs of Abuse Present no 02/05/2025 PHQ-2 Answer Date Recorded Patient Health Questionnaire-9 Score 10 01/31/2025 Sex and Gender Information Value Date Recorded Sex Assigned at Not on file Legal Sex Male 9:56 AM EST Gender Identity Not on file Sexual Orientation Not on file documented as of this encounter Last Filed Vital Signs Vital Sign Reading Time Taken Comments Blood Pressure 97/63 02/05/2025 10:31 AM EDT Pulse 74 02/05/2025 10:35 AM EDT Temperature 36.8 C (98.2 F) 02/05/2025 9:37 AM EDT Respiratory Rate 22 02/05/2025 9:37 AM EDT Oxygen Saturation 97% 02/05/2025 10:35 AM EDT Inhaled Oxygen Concentration - - Weight 63.5 kg (140 lb) 02/05/2025 9:37 AM EDT Height 180.3 cm (5' 11 ) 02/05/2025 9:37 AM EDT Body Mass Index 19.53 02/05/2025 9:37 AM EDT documented in this encounter Functional Status * Calculated C-SSRS Risk Score (Lifetime/Recent) Answer Date of Assessment Author No Risk Indicated 02/05/2025 9:38 AM EDT Deysi Hayes RN * Joiner Suicide Severity Rating Scale (Screener/Recent Self-Report) Question Answer Date of Assessment Author 1. Wish to be (Past 1 Month) No 025 9:38 AM EDT Roxana Hayes RN 2. Non-Specific Active Suici lluvia Thoughts (Past 1 Month) No 02/05/2025 9:38 AM EDT Roxana Hayes RN 6. Suicidal Behavior (Lifetime) No 9:38 AM EDT Roxana Hayes RN documented as of this encounter Discharge Instructions * Attachments The following attachments cannot be sent through Care Everywhere. * Acute Back Pain Adult (Samoan) documented in this encounter Medications at Time of Discharge oxyCODONE-acetam inophen (PERCOCET) 10-325 MG per tabletIndication s:Complex regional pain syndrome type 2, affecting unspecified site Take 1 tablet by mouth Every 6 (Six) Hours As Needed for Moderate Pain. 12 tablet 01/18/2025 oxyCODONE-acetam inophen (PERCOCET) 10-325 MG per tabletIndication s:Acute on chronic low back pain Take 1 tablet by mouth Every 6 (Six) Hours As Needed for Moderate Pain for up to 2 days. 8 tablet 02/05/2025 10:48 AM EDT 02/05/2025 celecoxib (CeleBREX) 200 MG capsuleIndicatio ns:Chronic pain after repair of hernia Take 1 capsule by mouth Daily. 60 capsule 12/13/2024 5 Chlorhexidine Gluconate 4 % solution Apply 1 Application topically to the appropriate area as directed Daily. Apply to low back, abdomen, buttocks for 5 days prior to procedure 236 mL 11/26/2024 5 Gel Base gelIndications:C omplex regional pain syndrome type 2, affecting unspecified site Use 2 g 4 (Four) Times a Day. KETAMINE 10%, GABAPENTIN 6%, LIDOCAINE 5%, AMITRIPTYLINE 2%, BUPIVACAINE 2%, MELOXICAM 0.1% 60 g 5 12/17/2024 5 methocarbamol (ROBAXIN) 750 MG tabletIndication s:Chronic pain after repair of hernia Take 1 tablet by mouth 2 (Two) Times a Day As Needed for Muscle Spasms. 60 tablet 12/13/2024 5 mupirocin (BACTROBAN) 2 % nasal ointment Administer 1 Application into the nostril(s) as directed by provider 3 (Three) Times a Day. 15 g 11/26/2024 5 documented as of this encounter Miscellaneous Notes * [facility] Provider Note - Trey Greenfield DO - 02/05/2025 10:38 AM EDT Subjective History of Present Illness: The patient presents with low back pain. He has a history of chronic back pain and recently had a pain stimulator placed several weeks ago. 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 He reports subjective weakness in both lower extremities but denies any urinary incontinence, unilateral weakness, or saddle anesthesia. He remains able to ambulate and denies bowel incontinence. He denies trauma beyond the described incident, fever, or recent weight loss. He has no history ofIV drug use or malignancy. Nurses Notes reviewed and agree, including vitals, allergies, social history and prior medical history. REVIEW OF SYSTEMS: All systems reviewed and not pertinent unless noted. Review of Systems Past Medical History: Diagnosis Date Asthma Cervical disc disorder Chronic pain disorder Cluster headache Depression Ear infection Headache, tension-type Joint pain Low back pain Lumbosacral disc disease Migraines Neck pain PTSD (post-traumatic stress disorder) Spinal stenosis Allergies: Dimetapp cold-allergy [brompheniramine-phenylephrine], Hydrocodone- acetaminophen, Methadone, and Toradol [ketorolac tromethamine] Past Surgical History: Procedure Laterality Date ADENOIDECTOMY HERNIA REPAIR SPINAL CORD STIMULATOR IMPLANT TRIGGER POINT INJECTION Social History Socioeconomic History Marital status: Tobacco Use Smoking status: Every Day Current packs/day: 1.00 Average packs/day: 1 pack/day for 29.6 years (29.6 ttl pk-yrs) Types: Cigarettes Start date: 06/13/1995 Smokeless tobacco: Never Vaping Use Vaping status: Never Used Substance and Sexual Activity Alcohol use: Not Currently Drug use: Not Currently Types: Marijuana Comment: Has medical marijuana card Sexual activity: Not Currently Partners: Female Comment: Marraige History reviewed. No pertinent family history. Objective Physical Exam: BP 97/63 Pulse 74 Temp 98.2 ??F (36.8 ??C) (Oral) Resp 22 Ht 180.3 cm (71 ) Wt 63.5 kg (140 lb) SpO2 97% BMI 19.53 kg/m?? Physical Exam Vitals and nursing note reviewed. Constitutional: General: He is not in acute distress. Appearance: Normal appearance. He is not ill-appearing. Musculoskeletal: Comments: No obvious deformity or step-off T or L-spine equal strength bilateral lower extremities no decrease sensation Neurological: Mental Status: He is alert. Psychiatric: Mood and Affect: Mood normal. Behavior: Behavior normal. Procedures ED Course: Lab Results (last 24 hours) No results found for the last [address] Lumbar Spine Without Contrast Result Date: 02/05/2025 CT LUMBAR SPINE WO CONTRAST Date of Exam: 02/05/2025 9:52 AM EDT Indication: back pain, recent stim placement. Comparison: None available. Technique: Axial CT images were obtained of the lumbar spine without contrast administration. Reconstructed coronal and sagittal images were also obtained. Automated exposure control and iterative construction methods were used. Findings: OSSEOUS STRUCTURES: Nofracture nor bony destructive process. ALIGNMENT: Normal DISC SPACE: Normal JOINTS: No significant arthropathy. SOFT TISSUES: There is a spinal cord device entering the dorsal canal at the level of L1-L2. LEVELS: L1- L2: No significant canal stenosis or neural foraminal narrowing. L2-L3: Mild broad-based disc bulge and bilateral facet joint arthropathy. No significant canal stenosis. Mild bilateral neural foraminal narrowing. L3-L4: Mild broad- based disc bulge and bilateral facet joint arthropathy. No significant canal stenosis. Mild bilateral neural foraminal narrowing. L4-L5: Mild broad-based disc bulge and bilateral facet joint arthropathy with ligamentum flavum thickening. There is mild canal stenosis and mild bilateral neural foraminal narrowing. L5-S1: Mild broad-based disc bulge andbilateral facet joint arthropathy. No significant canal stenosis or neuroforaminal narrowing. Impression: Impression: 1.Multilevel lumbar degenerative disc disease and facet joint arthropathy with mild canal stenosis at L4-L5. 2.Multilevel mild lumbar neural foraminal narrowing. Electronically Signed: Bridget Villatoro MD 02/05/2025 10:07 AM EDT Workstation ID: [id number] This patient presents with acute exacerbation of chronic low back pain following recent spinal cordstimulator placement. Given his recent implant, I considered serious complications including epidural abscess, hematoma, lead migration, and device infection, as well as more common causes of acute back pain such as disc herniation and stenosis. Physical examination revealed a well-appearing patient with normal vital signs and intact neurologic function. There were no concerning findings suggestive of infection such as fever, erythema, or drainage at the implant site. CT imaging demonstrated multilevel degenerative changes with mild canal stenosis at L4-L5 and mild neural foraminal narrowing at multiple levels. Importantly, the stimulator leads were appropriately positioned entering the dorsal canal at L1- L2 without evidence of migration or complications. The patient experienced significant improvement following oral pain medication. Given his clinical stability, normal neurologic examination, and imaging showing intact hardware without concerning findings, the most likely etiology is mechanical back pain from his underlying degenerative disc disease rather than stimulator-related complications. I discussed the findings with the patient, who demonstrated understanding of the likely diagnosis and agreed with outpatient management. He will follow up with his pain management physician within 48hours for further evaluation. I provided clear return precautions including fever, drainage from surgical site, new neurologic symptoms, or severe pain unresponsive to medication. Medical decision-making was moderate complexity given evaluation for potentially serious hardware complications, need for advanced imaging with detailed interpretation, and prescription of controlledsubstances. Data interpreted: Nursing notes reviewed, vital signs reviewed. Labs independently interpreted by me (CBC, CMP, lipase, UA, troponin, ABG, lactic acid, procalcitonin). Imaging independently interpreted by me (x-ray, CT scan). EKG independently interpreted by me. O2 saturation: Counseling: Discussed the results above with the patient regarding need for admission or discharge.Patient understands and agrees plan of care. ----- ED Disposition ED Disposition Discharge Condition Stable Comment -- Final diagnoses: Acute on chronic low back pain Your Follow-Up Providers Rashid Venegas DO. Specialty: Internal Medicine Count [facility] the [facility] [address] [place] [address] Contact information for after-discharge care Follow-up information has not been specified. Your medication list CHANGE how you take these medications Instructions Last Dose Given Next Dose Due oxyCODONE-acetaminophen 10-325 MG per tablet Commonly known as: PERCOCET What changed: Another medication with the same name was added. Make sure you understand how and when to take each. Take 1 tablet by mouth Every 6 (Six) Hours As Needed for Moderate Pain. oxyCODONE-acetaminophen 10-325 MG per tablet Commonly known as: PERCOCET What changed: You were already taking a medication with the same name, and this prescription was added. Make sure you understand how and when to take each. Take 1 tablet by mouth Every 6 (Six) Hours As Needed for Moderate Pain for up to 2 days. ASK your doctor about these medications Instructions Last Dose Given Next Dose Due celecoxib 200 MG capsule Commonly known as: CeleBREX Take 1 capsule by mouth Daily. Chlorhexidine Gluconate 4 % solution Apply 1 Application topically to the appropriate area as directed Daily. Apply to low back, abdomen, buttocks for 5 days prior to procedure Gel Base gel Use 2 g 4 (Four) Times a Day. KETAMINE 10%, GABAPENTIN 6%, LIDOCAINE 5%, AMITRIPTYLINE 2%, BUPIVACAINE 2%, MELOXICAM 0.1% methocarbamol 750 MG tablet Commonly known as: ROBAXIN Take 1 tablet by mouth 2 (Two) Times a Day As Needed for Muscle Spasms. mupirocin 2 % nasal ointment Commonly known as: BACTROBAN Administer 1 Application into the nostril(s) as directed by provider 3 (Three) Times a Day. Where to Get Your Medications These medications were sent to [facility] [address], [address], [facility] [address] Hours: Tuesday to Tuesday 8 AM to 5 PM oxyCODONE-acetaminophen 10-325 MG per tablet documented in this encounter Plan of Treatment Upcoming Encounters Date Type Department Care Team (Late st Contact Info) Description 03/26/2025 1:50 PM EDT Office Visit [facility] [address] [facility] [address] [place] [phone] Juaquin Pnatoja MD [address] [facility] [address] [place], [place] [id number] documented as of this encounter Procedures Procedure Name Priority Date/Time Associated Diagnosis Comments CT LUMBAR SPINE WO CONTRAST STAT 02/05/2025 10:03 AM EDT documented in this encounter Results * CT Lumbar Spine Without Contrast (02/05/2025 10:03 AM EDT) Anatomical Region Laterality Modality L-spine N/A Computed Tomogra phy 02/05/2025 10:0 4 AM EDT Impressions 02/05/2025 10:07 AM EDT Impression: 1.Multilevel lumbar degenerative disc disease and facet joint arthropathy with mild canal stenosis at L4-L5. 2.Multilevel mild lumbar neural foraminal narrowing. Electronically Signed: Bridget Villatoro MD 02/05/2025 10:07 AM EDT Workstation ID: [id number] Narrative 02/05/2025 10:[address] LUMBAR SPINE WO CONTRAST Date of Exam: 02/05/2025 9:52 AM EDT Indication: back pain, recent stim placement. Comparison: None available. Technique: Axial CT images were obtained of the lumbar spine without contrast administration. Reconstructed coronal and sagittal images were also obtained. Automated exposure control and iterative construction methods were used. Findings: OSSEOUS STRUCTURES: No fracture nor bony destructive process. ALIGNMENT: Normal DISC SPACE: Normal JOINTS: No significant arthropathy. SOFT TISSUES: There is a spinal cord device entering the dorsal canal at the level of L1-L2. LEVELS: L1-L2: No significant canal stenosis or neural foraminal narrowing. L2-L3: Mild broad-based disc bulge and bilateral facet joint arthropathy. No significant canal stenosis. Mild bilateral neural foraminal narrowing. L3-L4: Mild broad-based disc bulge and bilateral facet joint arthropathy. No significant canal stenosis. Mild bilateral neural foraminal narrowing. L4-L5: Mild broad-based disc bulge and bilateral facet joint arthropathy with ligamentum flavum thickening. There is mild canal stenosis and mild bilateral neural foraminal narrowing. L5-S1: Mild broad-based disc bulge and bilateral facet joint arthropathy. No significant canal stenosis or neuroforaminal narrowing. Procedure Note Bridget Villatoro MD - 02/05/2025 CT LUMBAR SPINE WO CONTRAST Date of Exam: 02/05/2025 9:52 AM EDT Indication: back pain, recent stim placement. Comparison: None available. Technique: Axial CT images were obtained of the lumbar spine withoutcontrast administration. Reconstructed coronal and sagittal images werealso obtained. Automated exposure control and iterative constructionmethods were used. Findings: OSSEOUS STRUCTURES: No fracture nor bony destructive process. ALIGNMENT: Normal DISC SPACE: Normal JOINTS: No significant arthropathy. SOFT TISSUES: There is a spinal cord device entering the dorsal canal atthe level of L1-L2. LEVELS: L1-L2: No significant canal stenosis or neural foraminal narrowing. L2-L3: Mild broad-based disc bulge and bilateral facet joint arthropathy.No significant canal stenosis. Mild bilateral neural foraminalnarrowing. L3-L4: Mild broad-based disc bulge and bilateral facet joint arthropathy.No significant canal stenosis. Mild bilateral neural foraminalnarrowing. L4-L5: Mild broad-based disc bulge and bilateral facet joint arthropathywith ligamentum flavum thickening. There is mild canal stenosis and mildbilateral neural foraminal narrowing. L5-S1: Mild broad-based disc bulge and bilateral facet joint arthropathy.No significant canal stenosis or neuroforaminal narrowing. IMPRESSION: Impression: 1.Multilevel lumbar degenerative disc disease and facet joint arthropathywith mild canal stenosis at L4-L5. 2.Multilevel mild lumbar neural foraminal narrowing. Electronically Signed: Bridget Villatoro MD 02/05/2025 10:07 AM EDT Workstation ID: [id number] Trey Greenfield DO IMG CT ORDERABLES Final Result documented in this encounter Visit Diagnoses Diagnosis Acute on chronic low back pain- Primary documented in this encounter Administered Medications Inactive Administered Medications - up to 3 most recent administrations Medication Order MAR Action Action Date Dose Rate Site oxyCODONE-acetaminophen (PERCOCET) 10-325 MG per tablet 1 tablet 1 tablet, Oral, Once, On Tue02/05/25 at 1015, For 1 dose, Based on patient request - if ordered for moderate or severe pain, provider allows for administration of a medication prescribed for a lower pain scale. [CODY] Do not exceed 4 grams of acetaminophen in a 24 hr period. Max dose of 2gm for AST/ALT greater than 120 units/L If given for pain, use the following pain scale: Mild Pain = Pain Score of 1-3, CPOT 1-2 Moderate Pain = Pain Score of 4-6, CPOT 3-4 Severe Pain = Pain Score of 7-10, CPOT 5-8 Given 02/05/2025 9:53 AM EDT 1 tablet documented in this encounter Active and Recently Administered Medications Times are shown in EDT. Scheduled Medication Order 02/03/2025 02/04/2025 02/05/2025 oxyCODONE-acetaminophen (PERCOCET) 10-325 MG per tablet 1 tablet (COMPLETED) 1 tablet, Oral, Once, On Tue02/05/25 at 1015, For 1 dose, Based on patient request - if ordered for moderate or severe pain, provider allows for administration of a medication prescribed for a lower pain scale. [CODY] Do not exceed 4 grams of acetaminophen in a 24 hr period. Max dose of 2gm for AST/ALT greater than 120 units/L If given for pain, use the following pain scale: Mild Pain = Pain Score of 1-3, CPOT 1-2 Moderate Pain = Pain Score of 4-6, CPOT 3-4 Severe Pain = Pain Score of 7-10, CPOT 5-8 0953 (Given - Provid er: Jackeline Mendoza, RN) documented in this encounter Care Teams Pss Delivery Professional Relationship Specialty Start Date End Date Rashid Venegas DO [address] [place] [address] [place] [id number] PCP - General Internal Medicine 07/19/24 documented as of this encounter
--- OUTSIDE RECORDS SUMMARY | 2025-02-28 14:00 | XMS_ITS | Encounter Summary ---
Author Organization [facility] ystem Address [address] [place] [address] Care Team Providers Care Customer Consulting Manager Name Role Phone TheoRashid garcia Christiano Primary Care Provider + Reason for Visit * Reason Comments Follow-up Back pain Encounter Details Date Type Department Care Team (Late st Contact Info) Description 02/28/2025 2:00 PM EDT Office Visit [facility]IN [facility]EMENT [address] [facility] [address] [place] [address] Hailee Salcedo PA-C [address] [facility] [address] [place] [address] Complex regional pain syndrome type 2, affecting unspecified site (Primary Dx); S/P insertion of spinal cord stimulator; Chronic pain syndrome; Chronic pain after repair of hernia; Status post inguinal hernia repair; Chronic groin pain, left Social History Tobacco Use Types Packs/Day Years [...] 02/05/2025 PHQ-2 Answer Date Recorded Patient Health Questionnaire-2 Score 1 02/28/2025 Sex and Gender Information Value Date Recorded [...] - Inhaled Oxygen Concentration - - Weight 64.9 kg (143 lb) 02/28/2025 1:45 PM EDT Height 180.3 cm (5' 11 ) 02/28/2025 1:45 PM EDT Body Mass Index 19.94 02/28/2025 1:45 PM EDT documented in this encounter Functional Status documented as of this encounter Progress Notes * Hailee Salcedo PA-C - 02/28/2025 2:00 PM EDT Referring Physician: No referring provider defined for this encounter. Primary Physician: Rashid Venegas DO CHIEF COMPLAINT or REASON FOR VISIT: Follow-up (Back pain) Initial history of present illness on 10/08/2024: [...] returns to clinic today. He is approximately 6 weeks out from permanent dorsal root ganglion stimulator implant for CRPS. Unfortunately, he did have a sudden increase in acute low back pain about 1 month ago which prompted a trip to the emergency department. He did undergo a CT scan which was negative for any acute findings. Today, he reports good relief from the dorsal root ganglion stimulator for his chronic left inguinal pain. Approximately 70% relief so far. Has been following postoperative restrictions. Has healed up appropriately denies any systemic or local signs of infection. Today, he complains of chronic right groin pain. This has been present since his inguinal hernia repair in February 2024. He has pain complaints are little different compared to his left side. He reports that he primarily has pain near the anchor that was used for the hernia repair. Denies any neuropathic qualities to this pain. Has historically had relief with topical neuropathic cream however he reports recently this cream is making him feel intoxicated. Interventions: 10/23/2024: Left superior hypogastric plexus sympathetic block with 80% relief for 2.5 days 11/22/2024: Left T12, L1, S2 DRG trial with 80-100% relief 01/18/2025: Left T12, L1, S2 DRG implant with Objective Pain Scoring: BRIEF PAIN INVENTORY: Total score: Pain Score 02/28/25 1345 PainSc: 3 PainLoc: Back PHQ-2: 1 PHQ-9: Opioid Risk Tool: Review of Systems: ROS [...] STIMULATOR IMPLANT TRIGGER POINT INJECTION Family History No family history on file. Social History Social History Socioeconomic History Marital status: Tobacco Use Smoking status: Every Day Current packs/day: 1.00 Average packs/day: 1 pack/day for 29.7 years (29.7 ttl pk-yrs) Types: Cigarettes Start date: 06/13/1995 [...] mouth Daily. (Patient not taking: Reported on 02/28/2025), Disp: 60 capsule, Rfl: 0 methocarbamol (ROBAXIN) 750 MG tablet, Take 1 tablet by mouth 2 (Two) Times a Day As Needed for Muscle Spasms. (Patient not taking: Reported on 02/28/2025), Disp: 60 tablet, Rfl: 0 oxyCODONE-acetaminophen (PERCOCET) 10-325 MG per tablet, Take 1 tablet by mouth Every 6 (Six) HoursAs Needed for Moderate Pain. (Patient not taking: Reported on 02/28/2025), Disp: 12 tablet, Rfl: 0 Physical Exam: Vitals: 02/28/25 1345 Weight: 64.9 kg (143 lb) Height: 180.3 cm (71 ) PainSc: 3 PainLoc: Back General: Alert and oriented, No [...] in the left flank. IPG incision site has healed appropriately without surrounding signs of infection such as erythema, inflammation, induration, or purulent drainage. Dorsal root ganglion stimulator lead entry sites have scarred appropriately. No signs of systemic or local infection Imaging Studies: No results found for this [...] L1, S2 DRG stimulator. Patient healing appropriately. 02/28/2025: 6 weeks s/p T12, L1, S2 DRG stimulator with excellent pain relief. Patient recovered appropriately. Incisions healed appropriate. Primarily has mechanical right groin pain secondary to hernia repair. Denies any neuropathic component today.. Discontinue topical neuropathic cream. Will restart methocarbamol and Celebrex. 1. Complex regional pain syndrome type 2, affecting unspecified site 2. S/P insertion of spinal cord stimulator 3. Chronic pain syndrome 4. Chronic pain after repair of hernia 5. Status post inguinal hernia repair 6. Chronic groin pain, left PLAN: 1. Medications: -Discontinue topical neuropathic cream secondary to side effects - Continue Celebrex 200 mg daily ss needed - Today methocarbamol 750 mg 1 to 2 tablets daily as needed 2. Physical Therapy: Postoperative restrictions have been lifted. I did advise him to remain cautious for the next couple reeks in regards to bending, twisting, reaching, lifting 3. Psychological: 4. Complementary and alternative (CAM) Therapies: 5. Labs/Diagnostic studies: None indicated 6. Imaging: CT report reviewed 7. Interventions: 6 weeks s/p permanent left T12, L1, S2 dorsal root ganglion stimulator implant with Romero. Patient healing appropriately. Incisions have scarred appropriately. Romero device rep here for questions and device interrogation 8. Referrals: None indicated 9. Records: ED notes reviewed 10. Lifestyle goals: Follow-up [address] Pantoja [facility] Pain Management Hailee Salcedo PA-C Quality Metrics: Caesar Castillo reports a pain score of 3. Given his pain assessment as noted, treatment [...] and accurate as of this date. The 21st Century Cures Act makes medical notes like [...] Description 03/26/2025 1:50 PM EDT Office Visit [facility] PAIN MANAGEMENT [address] [facility] [address] [place] [address] Juaquin Pantoja MD [address] [facility] [address] [place] [address] documented as of this encounter Visit Diagnoses Diagnosis Complex regional pain syndrome type 2, affecting unspecified site- Primary S/P insertion of spinal cord stimulator Chronic pain syndrome Chronic pain after repair of hernia Status post inguinal hernia repair Other postprocedural status Chronic groin pain, left documented in this encounter Care Teams Customer Consulting Manager Relationship Specialty Start Date End Date Rashid Venegas DO [address] [place] [address] PCP - General Internal Medicine 07/19/24 documented as of this encounter
[2025-03-15 13:57] LABS: Hematocrit 44.4 % (42.0-52.0); Hemoglobin 15.4 g/dL (14.1-18.0); Immature Granulocytes % 0.2 %; Mean Corpuscular HGB Conc 34.7 g/dL (31.8-35.4); Mean Corpuscular Hemoglobin 31.8 pg (27.0-31.2); Mean Corpuscular Volume 91.7 fl (80-94); Nucleated Red Blood Cells % 0 %; Platelet Count 269 K/mm3 (142-424); Red Blood Count 4.84 M/mm3 (4.60-6.20); Red Cell Distribution Width-SD 42.8 fL; White Blood Count 8.7 K/mm3 (4.8-10.8)
[2025-03-15 14:32] LABS: Alanine Aminotransferase 21 U/L (12-78); Albumin Level 4.2 g/dl (3.5-5.0); Albumin/Globulin Ratio 1.7 (1.1-1.8); Alkaline Phosphatase 112 U/L (38-126); Anion Gap 13.7 mEq/L (5-15); Aspartate Amino Transferase 27 U/L (17-59); Bilirubin,Total 0.7 mg/dl (0.2-1.3); Blood Urea Nitrogen 7 mg/dl (9-20); Calcium 9.2 mg/dl (8.4-10.2); Carbon Dioxide 28 mmol/L (22.0-30.0); Chloride 102 mmol/L (98-107); Cholesterol 256 mg/dl (140-200); Creatinine,Serum 0.60 mg/dl (0.66-1.25); Estimated Glomerular Filt Rate 147 ml/min (>60); GFR (African American) 178 ML/MIN (>60); Globulin 2.5 g/dL (1.3-3.2); Glucose 65 mg/dl (74-100); HDL Cholesterol 35 mg/dl (40-60); Potassium 4.7 mmoL/L (3.5-5.1); Sodium 139 mmol/L (136-145); Total Protein,Serum 6.7 g/dl (6.3-8.2); Triglycerides 343 mg/dl (30-150)
[2025-03-15 15:01] LABS: Free T4 (Free Thyroxine) 0.91 ng/dl (0.78-2.19)
[2025-03-15 15:02] LABS: Thyroid Stimulating Hormone 0.88 uIU/mL (0.465-4.68)
[2025-03-15 15:34] LABS: Hepatitis C Ab Qual. W/ RFX REACTIVE (Negative)
--- OUTSIDE RECORDS SUMMARY | 2025-03-18 08:53 | XMS_ITS | Clinical Summary ---
Author Organization [facility] Address [address] [place] [address] Care Team Providers Care Wood Type Finisher Name Role Phone Rashid Venegas Christiano Primary Care Provider + Allergies Active Allergy Reactions Criticality Noted Date Comments Brompheniramine-Phenyle phrine Other (See Comments) 06/29/2017 Brother allergic, told not to take just in case Hydrocodone-Acetaminoph en Itching 01/18/2025 Pt notified pharmacy at m2b delivery Methadone Unknown - High Severity 08/23/2024 Ketorolac Tromethamine Itching 08/23/2024 Medications oxyCODONE-acet aminophen (PERCOCET) 10-325 MG per tabletIndicati ons:Complex regional pain syndrome type 2, affecting unspecified site Take 1 tablet by mouth Every 6 (Six) Hours As Needed for Moderate Pain. 12 tablet 025 Active Additional Information Patient not taking.Reported on 02/28/2025 Gel Base gelIndications :Complex regional pain syndrome type 2, affecting unspecified site Use 2 g 4 (Four) Times a Day. KETAMINE 10%, GABAPENTIN 6%, LIDOCAINE 5%, AMITRIPTYLINE 2%, BUPIVACAINE 2%, MELOXICAM 0.1% 60 g 5 025 Active celecoxib (CeleBREX) 200 MG capsuleIndicat ions:Chronic pain after repair of hernia Take 1 capsule by mouth Daily. 60 capsule 025 Active methocarbamol (ROBAXIN) 750 MG tabletIndicati ons:Chronic pain after repair of hernia Take 1 tablet by mouth 2 (Two) Times a Day As Needed for Muscle Spasms. 60 tablet Active mupirocin (BACTROBAN) 2 % nasal ointment Administer 1 Application into the nostril(s) as directed by provider 3 (Three) Times a Day. 15 g 025 2024 Discontinued Chlorhexidine Gluconate 4 % solution Apply 1 Application topically to the appropriate area as directed Daily. Apply to low back, abdomen, buttocks for 5 days prior to procedure 236 mL 2024 Discontinued methocarbamol (ROBAXIN) 750 MG tabletIndicati ons:Chronic pain after repair of hernia Take 1 tablet by mouth 2 (Two) Times a Day As Needed for Muscle Spasms. 60 tablet 025 2024 Discontinued(R eorder) celecoxib (CeleBREX) 200 MG capsuleIndicat ions:Chronic pain after repair of hernia Take 1 capsule by mouth Daily. 60 capsule 2024 Discontinued(R eorder) Active Problems No known active problems Encounters Date Type Department Care Team Description 02/28/2025 2:00 PM EDT Office Visit [facility] PAIN MANAGEMENT [address] [facility] [address] [place] [address] Hailee Salcedo PA-C Complex regional pain syndrome type 2, affecting unspecified site (Primary Dx); S/P insertion of spinal cord stimulator; Chronic pain syndrome; Chronic pain after repair of hernia; Status post inguinal hernia repair; Chronic groin pain, left 02/28/2025 Travel 02/05/2025 9:33 AM EDT - 02/05/2025 10:56 AM EDT Emergency [facility] [place] [address] [facility] [address] [place] [phone] Trey [place]field, Acute on chronic low back pain (Primary Dx) Discharge Disposition: Home or Self Care 02/05/2025 Travel 02/05/2025 Telephone [facility] PAIN MANAGEMENT [address] [place] [phone] Juaquin Pantoja MD 01/31/2025 8:00 AM EDT Office Visit [facility] PAIN MANAGEMENT [address] [facility] [address] [place] [phone] Hailee Salcedo PA-C S/P insertion of spinal cord stimulator (Primary Dx); Complex regional pain syndrome type 2, affecting unspecified site; Status post inguinal hernia repair; Chronic pain after repair of hernia; Chronic pain syndrome 01/31/2025 Travel 01/18/2025 3:15 PM EDT Outside Facility Service [facility] PAIN MANAGEMENT [address] [facility] [address] [place] [address] Juaquin Pantoja MD Complex regional pain syndrome type 2, affecting unspecified site (Primary Dx) 01/18/2025 Documentation [facility] PAIN MANAGEMENT [address] [facility] [address] [place] [phone] Juaquin Pantoja MD 01/15/2025 Telephone [facility] PAIN MANAGEMENT [address] [facility] [address] [place] [address] Juaquin Pantoja MD 01/11/2025 Telephone [facility] PAIN MANAGEMENT [address] [place] [phone] Brianne Moeller MA 12/24/2024 Telephone [facility] PAIN MANAGEMENT [address] [address] [place] - RESCHEDULING PROCEDURE 12/17/2024 Refill [facility] PAIN MANAGEMENT [address] [facility] [address] [place] [address] Hailee Salcedo PA-C Complex regional pain syndrome type 2, affecting unspecified site from Last 3 Months Social History Tobacco Use Types Packs/Day Years [...] on file Sexual Orientation Not on file Last Filed Vital Signs Vital Sign Reading Time Taken Comments Blood Pressure 97/63 02/05/2025 10:31 AM EDT Pulse 74 02/05/2025 10:35 AM EDT Temperature 36.8 C (98.2 F) 02/05/2025 9:37 AM EDT Respiratory Rate 22 02/05/2025 9:37 AM EDT Oxygen Saturation 97% 02/05/2025 10:35 AM EDT Inhaled Oxygen Concentration - - Weight 64.9 kg (143 lb) 02/28/2025 1:45 PM EDT Height 180.3 cm (5' 11 ) 02/28/2025 1:45 PM EDT Body Mass Index 19.94 02/28/2025 1:45 PM EDT Plan of Treatment Upcoming Encounters Date Type Department Care Team (Late st Contact Info) Description 03/26/2025 1:50 PM EDT Office Visit [facility] PAIN [facility]EMENT [address] [facility] [address] [place] [address] Juaquin Pantoja MD [address] [facility] [address] [place] [address] Health Maintenance Due Date Last Done Comments Pneumococcal Vaccine 0-49 (1 of 2 - PCV) 2000 TDAP/TD VACCINES (2 - Tdap) 08/30/2006 08/30/1996 ANNUAL PHYSICAL 06/29/2017 HEPATITIS C SCREENING 06/29/2017 INFLUENZA VACCINE 01/11/2025 Procedures Procedure Name Priority Date/Time Associated Diagnosis Comments CT LUMBAR SPINE WO CONTRAST STAT 02/05/2025 10:03 AM EDT from Last 3 Months Results * CT Lumbar Spine Without Contrast (02/05/2025 10:03 AM EDT) Anatomical Region Laterality Modality L-spine N/A Computed Tomogra phy 02/05/2025 10:0 4 AM EDT Impressions 02/05/2025 10:07 AM EDT Impression: 1.Multilevel lumbar degenerative disc disease and facet joint arthropathy with mild canal stenosis at L4-L5. 2.Multilevel mild lumbar neural foraminal narrowing. Electronically Signed: Bridget Villatoro MD 02/05/2025 10:07 AM EDT Workstation ID: [id number] Narrative 02/05/2025 10:[address] LUMBAR [...] MD 02/05/2025 10:07 AM EDT Workstation ID: [id number] Trey Greenfield DO IMG CT ORDERABLES Final Result from Last 3 Months Insurance [facility] PPO Care Teams Wood Type Finisher Relationship Specialty Start Date End Date Rashid Venegas DO [address] [place] [address] [place] [address] PCP - General Internal Medicine 07/19/24
--- OUTSIDE RECORDS SUMMARY | 2025-03-18 08:53 | XMS_ITS | Encounter Summary ---
Author Organization [facility] yste Address [address] [place] [address] Care Team Providers Care Sourcing Specialist Name Role Phone Rashid Venegas Primary Care Provider + Encounter Details Date Type Department Care Team (Late st Contact Info) Description 01/18/2025 Documentation [facility] PAIN MANAGEMENT [address] [phone] Juaquin Pantoja MD [address] [address] Social History Tobacco Use Types Packs/Day Years [...] as of this encounter Progress Notes * Juaquin Pantoja MD - 01/18/2025 2:25 PM EDT [facility] [address] [place] [id number] DOS: 01/18/2025 Juaquin Pantoja MD PROCEDURE: DRG Stimulator Implant with Three leads at: LEFT T12, LEFT L1, LEFT S2 PRE-OP DIAGNOSIS: Complex Regional Pain Syndrome Type 2 POST-OP DIAGNOSIS: SAME ANTIPLATELET/ANTICOAGULANT STOP DATE: None CONSENT: Risks, benefits and options were explained to the patient, all questions were answered andwritten informed consent was obtained. ANTIBIOTICS: [ANCEF 2g IV] ANESTHESIA: GETA PROCEDURE NOTE: The patient was positioned prone on the fluoroscopy table. Routine vital sign monitors were applied and anesthesia was initiated. The patient was prepped using [ Dura-Prep followed byChlorhexidine ], followed by sterile towels and drapes. The patient remained conversant throughout the procedure. The target level was identified on fluoroscopy and area to be injected as a starting point was infiltrated with lidocaine 1% using a 27-gauge needle. A 25-gauge 3.5-inch needle was usedto anesthetize epidural needle trajectory. An 14 -gauge Tuohy needle was then advanced to contact the lamina below entry interlaminar space. The needle was then walked off in a superior medial direction until it entered the epidural space using loss of resistance technique. An introducer sheath andepidural lead was then advanced through the Tuohy needle and directed to the target foramen to restposterior to the dorsal root ganglion. Intermittent AP and lateral fluoroscopic imaging was used to verify the correct positioning of leads. Paresthesia testing was then conducted and there was negative motor stimulation. A series of anchor loops were then created to secure the leads in position. This was repeated at each target DRG level. The needles were then carefully withdrawn leaving the leads in position. Attention was then turned to the IPG pocket site in the flank on the LEFT side. Subcutaneous tissue was infiltrated with local anesthetic and an incision was made. Intermittent hemostasis was achieved. Alternating blunt and sharp dissection was made to create remainder of implantablepulse generator (IPG) pocket. The leads were tunneled subcutaneously into the flank pocket and inser jostin into the (IPG). Impedance check was performed by the company farm loan representative. Copious irrigationwas then performed with normal saline. The incision deep fascia was closed using [ 2-0 Vicryl] suture and subcutaneous tissue closed with [3-0 Monocryl] suture. Skin glue was used to approximate the incision edges. The patient's back was cleaned with water and dried with sterile gauze. Covaderm was placed over the incisions and an abdominal binder was placed on the patient. The patient was transferred to a stretcher and taken to recovery in stable condition. EBL: Less than 50mL COMPLICATIONS:none The patient tolerated the procedure well. Vital signs were stable. Sensory and motor exam was unchanged from baseline. The patient was observed in recovery and was discharged per Anesthesia protocol.The patient (or responsible republican) was given post-procedure and discharge instructions to follow athome. FOLLOW UP: Future Appointments Date Time Provider Department Center 01/31/2025 9:30 AM Hailee Salcedo PA-C [facility] Pain Management Juaquin Pantoja MD CODES: [id number] documented in this encounter Plan of Treatment Upcoming Encounters Date Type Department Care Team (Late st Contact Info) Description 03/26/2025 1:50 PM EDT Office Visit [facility] PAIN MANAGEMENT [address] [facility] 330 [place] [phone] Juaquin Pantoja MD [address]60 [facility] [address] [place] [address] documented as of this encounter Visit Diagnoses Not on filedocumented in this encounter Care Teams Sourcing Specialist Relationship Specialty Start Date End Date Rashid Venegas DO [address] [place] [address] PCP - General Internal Medicine 07/19/24 documented as of this encounter
--- OUTSIDE RECORDS SUMMARY | 2025-03-18 08:53 | XMS_ITS | Encounter Summary ---
Author Organization [facility] yste Address [address] [place] [address] Care Team Providers Care Sales Representative Livestock Name Role Phone Rashid Venegas Primary Care Provider + Encounter Details Date Type Department Care Team (Latest Contact Info) Description 02/28/2025 Travel Social History Tobacco Use Types Packs/Day Years [...] on file documented as of this encounter Functional Status documented as of this encounter Plan of Treatment Upcoming Encounters Date Type Department Care Team (Late st Contact Info) Description 03/26/2025 1:50 PM EDT Office Visit [facility] PAIN MA[facility]GEMENT [address] [facility] [address] [place] [phone] Juaquin Pantoja MD [address] [facility] 302 [place] [address] documented as of this encounter Visit Diagnoses Not on filedocumented in this encounter Care Teams Sales Representative Livestock Relationship Specialty Start Date End Date Rashid Venegas DO [address] [place] [address] [place] [address] PCP - General Internal Medicine 07/19/24 documented as of this encounter
--- OUTSIDE RECORDS SUMMARY | 2025-03-18 08:53 | XMS_ITS | Encounter Summary ---
Author Organization [facility] yste Address [address] [place] [address] Care Team Providers Care Final Finisher Name Role Phone Rashid Venegas DO Primary Care Provider + Encounter Details Date Type Department Care Team (Late st Contact Info) Description 02/05/2025 Telephone [facility] PAIN MANAGEMENT [address] [address] Juaquin Pantoja MD [address] [facility] 302 [place] [address] Social History Tobacco Use Types Packs/Day Years [...] on file documented as of this encounter Miscellaneous Notes * Telephone Encounter - Satish Faria - 02/05/2025 8:37 AM EDT S/w pt he stated that he had the spine cord stimulator on the 01/18. 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 Pt stated that it is hard for him to stand and that his lower back feels like a vice right now. Pt statethat it feels like a spike has been drivin into his spine. Pt stated that he can tell its right about his hips and it feels like the pain wants to radiate but with the spine cord stimulator it wont let it. Pt also stated that it feels like his back is broke. Gave the pt [facility] number to call them as well. Told pt we would call back as soon as we can to let him know what to do. documented in this encounter Plan of Treatment Upcoming Encounters Date Type Department Care Team (Late st Contact Info) Description 03/26/2025 1:50 PM EDT Office Visit [facility] PAIN MANAGEMENT 3000 [facility] 330 [place] [address] Juaquin Pantoja MD [address] [facility] 302 [place] [address] documented as of this encounter Visit Diagnoses Not on filedocumented in this encounter Care Teams Final Finisher Relationship Specialty Start Date End Date Rashid Venegas DO [address] [facility] [address] [place] [address] PCP - General Internal Medicine 07/19/24 documented as of this encounter
--- OUTSIDE RECORDS SUMMARY | 2025-03-18 08:53 | XMS_ITS | Encounter Summary ---
Author Organization [facility] Address [address] [place] [address] Care Team Providers Care Inspector Advanced Composite Name Role Phone Rashid Venegas Primary Care Provider + Encounter Details Date Type Department Care Team (Latest Contact Info) Description 02/05/2025 Travel Social History Tobacco Use Types Packs/Day [...] documented as of this encounter Functional Status * Calculated C-SSRS Risk Score (Lifetime/Recent) Answer Date of Assessment Author No Risk Indicated 02/05/2025 9:38 AM Deysi Maynard RN * [place] Suicide Severity Rating Scale (Screener/Recent Self-Report) Question Answer Date of Assessment Author 1. Wish to be (Past 1 Month) No 025 9:38 AM EDT West, Roxana A, RN 2. Non-Specific Active Suici lluvia Thoughts (Past 1 Month) No 02/05/2025 9:38 AM EDT Roxana Hayes RN 6. Suicidal Behavior (Lifetime) No 9:38 AM EDT Roxana Hayes RN documented as of this encounter Plan of Treatment Upcoming Encounters Date Type Department Care Team (Late st Contact Info) Description 03/26/2025 1:50 PM EDT Office Visit [facility] PAIN MANAGEMENT [address] [facility] 330 [place] [phone] Juaquin Pantoja MD [address] [facility] 302 [place] [address] documented as of this encounter Visit Diagnoses Not on filedocumented in this encounter Care Teams Inspector Advanced Composite Relationship Specialty Start Date End Date Rashid Venegas DO [address] [place] [address] PCP - General Internal Medicine 07/19/24 documented as of this encounter
--- OUTSIDE RECORDS SUMMARY | 2025-03-18 08:53 | XMS_ITS | Encounter Summary ---
Author Organization [facility] yste Address [address] [place] [address] Care Team Providers Care Apn Name Role Phone Rashid Venegas DO Primary Care Provider + Encounter Details Date Type Department Care Team (Latest Contact Info) Description 01/31/2025 Travel Social History Tobacco Use Types Packs/Day [...] Description 03/26/2025 1:50 PM EDT Office Visit [facility] [address] [facility] [address] [place] [address] Juaquin Pantoja MD [address] [facility] [address] [place] [address] documented as of this encounter Visit Diagnoses Not on filedocumented in this encounter Care Teams Apn Relationship Specialty Start Date End Date Rashid Venegas DO [address] [place] [address] [address] [id number] PCP - General Internal Medicine 07/19/24 documented as of this encounter
== END 2025-03-15 23:59 ==
LOC: LAB.DROPOF 03-18 08:51
PROVIDERS: PCP Internal Medicine; Visit Provider Internal Medicine
DX: Z00.00 Encounter for general adult medical examination without abnormal findings (principal); D64.9 Anemia, unspecified; E05.90 Thyrotoxicosis, unspecified without thyrotoxic crisis or storm; E78.5 Hyperlipidemia, unspecified; Z13.29 Encounter for screening for other suspected endocrine disorder; Z11.4 Encounter for screening for human immunodeficiency virus [HIV]; Z11.59 Encounter for screening for other viral diseases; Z13.220 Encounter for screening for lipoid disorders
CPT/HCPCS: 80053; 80061; 84403; 84439; 84443; 85025; 86803; 87389; 87522